=== PATIENT | female | born 1950 | race Two or more races ===

== ENCOUNTER 2024-09-12 20:05 | Inpatient (IN) | payer MEDICARE, OTHER, SELFPAY ==
[2024-09-12] VITALS (10 sets, daily range): BP systolic 130–188; BP diastolic 60–80; BMI 25.9
[2024-09-12 21:26] LABS: Hematocrit 38.4 % (37.0-47.0); Hemoglobin 13.8 g/dL (12.0-16.0); Mean Corp Hgb Conc. 35.9 g/dL (33.0-37.0); Mean Corpuscular Volume 86.3 fL (81.0-99.0); Mean Platelet Volume 11.3 fL (7.4-10.4); Platelet Count 272 10^3/uL (130-400); Red Blood Cell Count 4.45 10^6/uL (4.20-5.40); Red Cell Dist. Width 13.4 % (11.5-14.5); White Blood Cell Count 8.2 10^3/uL (4.8-10.8)
[2024-09-12 21:38] LABS: INR 0.97; PT 13.2 Sec (11.4-14.6)
[2024-09-12 21:39] LABS: APTT 36.6 Sec (23.4-35.0)
[2024-09-12 21:40] LABS: Blood Urea Nitrogen 16 mg/dl (7-17); Calcium 9.4 mg/dl (8.4-10.2); Carbon Dioxide 21 mmol/L (22-30); Chloride 112 mmol/L (98-107); Estimated Creatinine Clearance 64 ml/min; Glucose 98 mg/dl (70-99); Potassium 3.9 mmol/L (3.5-5.1); Sodium 139 mmol/L (135-145); eGFR > 60.00
[2024-09-12] MEDS: NITROGLYCERIN PREMIX 250 IV (21:40)
[2024-09-12 21:54] LABS: Troponin I 0.275 ng/ml
[2024-09-12] MEDS: HEPARIN 25000 UNITS/250 ML IV (22:09)
--- NOTE | 2024-09-12 22:30 | HPS.HSE ---
Family Physician
<MEL Valencia - Last Filed: 09/12/24 19:22>
-
Family Physician: Karina Garcia
<Chico Shay PA-C - Last Filed: 09/13/24 02:24>
-
Family Physician: Kairna Garcia
[facility]: Dr Phuc Banuelos
[facility]patient [facility]: Dr. Lund ([facility])
Chief Complaint
<MEL Valencia - Last Filed: 09/12/24 19:22>
History of Present Illness
73-year-old Kittitian-speaking female underwent outpatient stress test for substernal chest pain. Inferolateral ST depressions were noted and patient was referred to [facility] emergency room. Plavix load of 300 mg was given and patient underwent
left heart cath which reported 60% distal left main and 95% mid RCA disease. Patient was transferred to [facility] for surgical evaluation.
TTE 09/12/24 ([facility]):
LVIDd 4.26
LVIDs 2.91
Left ventricular size and function normal with EF 60-65%. Normal RV size and function. Physiologic mitral regurgitation and tricuspid regurgitation. No aortic stenosis. No pulmonic valve pathology. No pericardial effusion. Grade 1 diastolic
dysfunction.
Carotid Duplex 09/11/24 ([facility]):
>70% SUDHIR stenosis
50-69% LICA stenosis
<Chico Shay PA-C - Last Filed: 09/13/24 02:24>
-
transferred from [facility] for mv-CAD and evaluation for CABG
History of Present Illness
73-year-old Kittitian-speaking female with hx HTN, HLD, and erosive gastritis underwent outpatient stress test for substernal chest pain. Inferolateral ST depressions were noted and patient was referred to [facility] emergency room. Plavix load
of 300 mg was given on 09/11/24 and patient underwent left heart cath on 09/12, which reported 60% distal left main and 95% mid RCA disease. She is also found to have b/l carotid dz with >70% SUDHIR and 50-69% LICA. Patient was transferred to [facility] for surgical evaluation. She denies any CP currently and appears comfortable. She is accompanied by her daughter. Pt is hypertensive 170s-180s- will switch from Nitro paste to iv Nitro for better BP control.
Apparently, she has been experiencing intermittent substernal and at time parasternal burning sensation for the past 6 months, which sometimes radiated down the left arm. She attributed it to acid reflux and was seen by a Wardrobe Technician.
Endoscopy revealed erosive gastritis and she was started on PPI with some relief, but not complete. Recently, she noticed more dyspnea with exertion with pressure sensation in the chest and burning in the mid sternum, which led to getting stress
test.
Pt states that she has difficulty tolerating po meds due to gastric upset and usually gets meds via injection. She mentioned at [facility] that she absolutely cannot take ASA, even 81 mg; however, she tolerated ASA and Plavix at [facility]. Pt stated that she has
been through many medications and currently tolerates at home Losartan, Diltiazem, Omeparazole, Maalox. She also stated intolerance of all statins, having rash, burning feeling all over and difficulty breathing. The least offensive to her was
Rosuvastatin, which she no longer takes. She states similar reaction of rash, burning sensation and difficulty breathing with antibiotics, including Amoxicillin, Cehalexin, Ciprofloxacin.
TTE 09/12/24 ([facility]):
LVIDd 4.26
LVIDs 2.91
Left ventricular size and function normal with EF 60-65%. Normal RV size and function. Physiologic mitral regurgitation and tricuspid regurgitation. No aortic stenosis. No pulmonic valve pathology. No pericardial effusion. Grade 1 diastolic
dysfunction.
Carotid Duplex 09/11/24 ([facility]):
>70% SUDHIR stenosis
50-69% LICA stenosis
Medical History
<MEL Valencia - Last Filed: 09/12/24 19:22>
Allergies / Home Medications
Allergies reflects when Allergies were last updated in [employer].
Home Medications with original date entered in [employer]
Allergy/Medication List:
Allergies
Allergy/AdvReac Type Severity Reaction Status Date / Time
No Known Allergies Allergy Unverified 09/12/24 13:30
<Chico Shay PA-C - Last Filed: 09/13/24 02:24>
Past Medical History
Past Medical History: Reports GERD (Erosive esophagitis), HTN and Hypercholesterolemia
Additional Past Medical History:
Renal cyst
Past Surgical History: Reports Cholecystectomy (2010) and Tonsilectomy
Additional Past Surgical History:
Recent Endoscopy. Repair of pelvic floor prolapse- follows with a Urologist
Social History
Tobacco: Non-smoker
Alcohol: None
Drug: None
Family History
Family History: Other (Mother at 58 yo from CVA)
Allergies / Home Medications
Allergy/Medication List:
Allergies
Allergy/AdvReac Type Severity Reaction Status Date / Time
acyclovir Allergy Severe Rash Verified 09/12/24 23:02
ciprofloxacin Allergy Severe Shortness Verified 09/12/24 23:01
of Breath
Fftxofz-VHA-ZeC Reductase Allergy Severe Rash Verified 09/12/24 23:03
Inhibitor
amoxicillin Allergy Severe Shortness Uncoded 09/12/24 23:02
of Breath
Cephalexin Allergy Severe Shortness Uncoded 09/12/24 23:02
of Breath
Review of Systems
<Chico Shay PA-C - Last Filed: 09/13/24 02:24>
-
History Source: Patient, Family and Transfer Record
A 12 point ROS was completed and negative except as noted: Yes
Constitutional: Reports No Symptoms
EENT: Reports No Symptoms
Respiratory: Reports Other (TURK)
Cardiac: Reports Chest Pain
Abdomen/GI: Reports Other (GERD)
: Reports No Symptoms
Musculoskeletal: Reports No Symptoms
Skin: Reports No Symptoms
Neurological: Reports No Symptoms
Endocrine: Reports No Symptoms
Hematologic/Lymphatic: Reports No Symptoms
Psych: Reports Calm
Physical Exam
<Chico Shay PA-C - Last Filed: 09/13/24 02:24>
Physical Exam
General: Well Developed, Well Nourished, No Apparent Distress and Comfortable
HEENT: NormoCephalic, Anicteric, Moist mucous membranes, Atraumatic and PERRLA
Respiratory: Clear
Cardiac: S1/S2, Regular Rhythm (no murmur) and Carotid Bruits (b/l with R>L)
GI: Soft, Non Tender, Non Distended and Normal Bowel Sounds
Musculoskeletal: No Clubbing, No Cyanosis and No Edema
Skin: Warm and Dry
Neuro: Awake, AO x 3, No Motor Deficits and Nonfocal/grossly intact
Psych: Calm and Intact Judgment/Insight
Impression/Plan
<MEL Valencia - Last Filed: 09/12/24 19:22>
-
IMPRESSION: 73 year old female transferred to [facility] for surgical evaluation of her Left main/multivessel coronary disease
PLAN:
� Surgeon to review imaging and discuss risk-benefit with patient
� Patient will need CT of the head and neck to further define degree of carotid stenosis
� Preop diagnostics including CT chest ordered
<Chico Shay PA-C - Last Filed: 09/13/24 02:24>
-
IMPRESSION: 73 year old female transferred to [facility] for surgical evaluation of her Left main/multivessel coronary disease
-NSTEMI/mv-CAD- last Plavix dose 09/11/24
-Cath 09/12/24:
LM: distal 60% stenosis
LAD: demonstrated myocardial bridging with mild systolic compression. Prox, mid, and distal with 10% stenosis
D1: 20% ostial and 30% mid stenosis
Circ:prox and mid 10% stenosis, mid to distal 20% stenosis
OM1 and OM2 with 10% stenosis
luminal irreg
RCA: mid 99% stenosis with QUANG II flow beyond the lesion and L-to-R collaterals
PDL/RPLs with luminal irreg
-EF 60-65%, no significant valvular dz by Echo 09/12/24 at [facility]
-b/l Carotid dz with >70% SUDHIR, 50-69% LICA, and >50% L ECA stenosis
-HTN
-HLD with statin intolerance
-Erosive gastritis
-Intolerance of multiple po meds
-Renal cyst
PLAN:
� Surgeon to review imaging and discuss risk-benefit with patient
- Will need to wash out Plavix (last dose 09/11/24)
- Will continue iv Nitro, iv Heparin, ASA, BB (pt was on iv Lopressor at [facility], will try po Lopressor), Losartan (will need to stop 2 days before surgery)
� Patient will need CT of the head and neck to further define degree of carotid stenosis
� Preop diagnostics including CT chest ordered
- Will ask [facility] Cardiology to follow pt
- Cath and Echo images uploaded into [employer]
Laboratory Results
<Chico Shay PA-C - Last Filed: 09/13/24 02:24>
-
Laboratory Results
PT 13.2 Sec (11.4-14.6) 09/12/24 21:18
INR 0.97 09/12/24 21:18
APTT 36.6 Sec (23.4-35.0) H 09/12/24 21:18
Troponin I 0.275 ng/ml H* 09/12/24 21:18
[2024-09-12] MEDS: OFIRMEV 100 IV (22:32)
[2024-09-12] MEDS: PEPCID 20 MG PO (22:45)
--- NOTE | 2024-09-12 23:23 | PTCARENOTE ---
Received pt from [facility] for CABG workup. Pt is AAOx3 SB on the monitor. Heparin gtt @ 1050 units/HR and Nitro gtt initiated @5 mcg/min and titrated to maintain BP<160 mmHg. Daughter at bedside. Plan of care was explained pt
verbalized understanding. Call carlin within reach.
[2024-09-13] VITALS (16 sets, daily range): BP systolic 104–157; BP diastolic 49–77; BMI 25.7
[2024-09-13 05:22] LABS: Urine Albumin Negative (Neg - Trace); Urine Bilirubin Negative (Negative); Urine Character Clear (Clear); Urine Color Yellow; Urine Glucose Negative (Negative); Urine Ketone 1+ (Negative); Urine Leukocyte Negative (Negative); Urine Nitrite Negative (Negative); Urine Occult Blood Negative (Negative); Urine Specific Gravity 1.015 (<1.030); Urine Urobilinogen Negative (Neg - 1+)
[2024-09-13 05:40] LABS: INR 1.03; PT 13.8 Sec (11.4-14.6)
[2024-09-13 05:42] LABS: APTT 84.9 Sec (23.4-35.0)
[2024-09-13 05:45] LABS: Hematocrit 36.4 % (37.0-47.0); Hemoglobin 12.8 g/dL (12.0-16.0); Mean Corp Hgb Conc. 35.2 g/dL (33.0-37.0); Mean Corpuscular Hgb 30.8 pg (27.0-31.0); Mean Corpuscular Volume 87.7 fL (81.0-99.0); Mean Platelet Volume 10.4 fL (7.4-10.4); Platelet Count 204 10^3/uL (130-400); Red Blood Cell Count 4.15 10^6/uL (4.20-5.40); Red Cell Dist. Width 13.4 % (11.5-14.5); White Blood Cell Count 7.5 10^3/uL (4.8-10.8)
[2024-09-13 05:47] LABS: ALT (SGPT) 23 U/L (0-35); AST (SGOT) 24 U/L (14-36); Albumin 4.1 g/dl (3.5-5.0); Alkaline Phosphatase 76 U/L (38-126); Blood Urea Nitrogen 16 mg/dl (7-17); Calcium 9.3 mg/dl (8.4-10.2); Carbon Dioxide 18 mmol/L (22-30); Chloride 109 mmol/L (98-107); Estimated Creatinine Clearance 64 ml/min; Glucose 97 mg/dl (70-99); Magnesium 2.1 mg/dl (1.6-2.3); Potassium 3.7 mmol/L (3.5-5.1); Sodium 137 mmol/L (135-145); Total Bilirubin 0.8 mg/dl (0.2-1.3); Total Protein 6.3 g/dl (6.3-8.2); eGFR > 60.00
[2024-09-13] MEDS: COZAAR 50 MG PO (08:06)
[2024-09-13] MEDS: LOPRESSOR PO (08:07)
[2024-09-13] MEDS: PROTONIX 40 MG PO (08:07)
[2024-09-13] MEDS: ASPIR LOW (ENTERIC COATED) 81 MG PO (10:23)
[2024-09-13] MEDS: SENOKOT-S 1 TABLET PO (10:26)
--- NOTE | 2024-09-13 11:53 | CON.CAR ---
Addendum entered and electronically signed by To Lund MD 09/13/24 12:44:
73 yo female with newly diagnosed CA transferred for CABG evaluation. She is chest pain free. Exam with wenceslao, regular rhythm, no murmurs, no edema. TnI 0.275. EKG and tele: sinus wenceslao.
CAD/NSTEMI. Plan for CABG after Plavix washout. Tentative Wed. Continue ASA, heparin drip, nitro drip.
Original Note:
Consultation
Consultation Request
Date/Time Consultation Requested: 09/13/2024 0800
Date/Time Consultation Performed: 09/13/2024 1130
Requesting Provider: Dr. Villanueva
Performing Provider: Dr. Lund
Reason for Consultation: CP, CAD
Medical History
-
Chief Complaint: CP
History of Present Illness:
73 y/o pt of Dr. Banuelos ( Cardiology) with history of HTN, hyperlipidemia, gastritis, carotid disease on recent carotid duplex who was evaluated as OP for CP. Pt had stress test which was abnormal leading to LHC. Now transferred to for CAB
eval. Currently denies CP.
Past Medical History
Past Medical History: Other (HTN, hyperlipidemia, GERD,)
Past Surgical History: Cholecystectomy, Tonsilectomy and Other (pelvic floor prolapse)
Social History
Tobacco: Non-Smoker
Alcohol: None
Family History
Family History: Reviewed & Not Pertinent
Allergies / Home Medications
Allergy/AdvReac Type Severity Reaction Status Date / Time
acyclovir Allergy Severe Rash Verified 09/12/24 23:02
ciprofloxacin Allergy Severe Shortness Verified 09/12/24 23:01
of Breath
Hgzztol-IWQ-XxP Reductase Allergy Severe Rash Verified 09/12/24 23:03
Inhibitor
amoxicillin Allergy Severe Shortness Uncoded 09/12/24 23:02
of Breath
Cephalexin Allergy Severe Shortness Uncoded 09/12/24 23:02
of Breath
�Medication �Instructions �Recorded �Confirmed �Type
Maalox 09/13/24 History
diltiazem HCl 180 mg 180 mg PO DAILY 09/13/24 09/13/24 History
capsule,extended release 24 hr
(Cardizem CD)
losartan 50 mg tablet 50 mg PO DAILY 09/13/24 09/13/24 History
omeprazole 20 mg capsule,delayed 20 mg PO DAILY 09/13/24 09/13/24 History
release
Review of Systems
-
History Source: Patient
Constitutional: No Symptoms
Respiratory: No Symptoms
Cardiac: No Symptoms
Abdomen/GI: No Symptoms
Musculoskeletal: No Symptoms
Skin: No Symptoms
Neurological: No Symptoms
Physical Exam
Vital Signs
Temp Pulse Resp BP Pulse Ox
98.3 F 68 16 135/72 98
09/13/24 08:04 09/13/24 11:00 09/13/24 08:04 09/13/24 09:14 09/13/24 08:04
Lab Results
09/13/24 04:58
09/13/24 04:58
Troponin I 0.275 ng/ml H* 09/12/24 21:18
Physical Exam
General: Well Developed, Well Nourished and No Apparent Distress
HEENT: Normocephalic, Anicteric and Moist Mucous Membranes
Respiratory: Clear and Non Labored Respirations
Cardiac: S1/S2 and Regular Rhythm
GI: Soft, Non Tender and Normal Bowel Sounds
Musculoskeletal: No Edema
Skin: Warm, Dry and Other (R radial no hematoma, there is a palpable R radial pulse. )
Neuro: AO x 3
Impression / Plan
-
CAD/NSTEMI:
-Plan for CAB. Allowing plavix washout
-CTS following
-Echo [facility]: EF 60-65%
-elevated troponin at [facility] 09/11/24, troponin 0.275 here on 09/12/24, IV heparin,asa,nitro
-bblocker ordered but being held secondary to bradycardia
HTN:
-con't meds
hyperlipidemia:
-not previously on statin secondary to rash.
-update lipids
-consider OP PCSK9i
Carotid disease:
-asa,
-head/neck CT pending
Data Reviewed
-
Ultrasound: Report Reviewed by me (Carotid US HR 08/2024 : R ICA > 70%, L ICA 50-69% stenosis)
Medical Tests (Nuc Med, Echo etc): Report Reviewed by me (LHC 09/12/24 [facility]: 60 % distal LM,99% mRCA, D1 ostial 20%, mid 30%,LCX: calcification 10-20%,) and Other (echo 09/12/24 [facility]: EF60-65, grade I DD)
Labs: Labs Reviewed by me
Old Records: Reviewed (Summarized as above from [facility])
[2024-09-13 13:42] LABS: Glycohemoglobin (HgbA1c) 5.5 % (4.0-5.6)
[2024-09-13] MEDS: LOPRESSOR 12.5 MG PO (20:48)
[2024-09-13] MEDS: PEPCID 20 MG PO (20:49)
--- NOTE | 2024-09-13 21:48 | PTCARENOTE ---
Assumed care of the pt @ 1900. Pt is AAOx3 SR on the monitor VSS Heparin and nitro gtts infusing. Denies chest pain. call carlin within reach.
[2024-09-14] VITALS (15 sets, daily range): BP systolic 123–182; BP diastolic 53–87; BMI 25.8
[2024-09-14 03:50] LABS: Hemoglobin 12.9 g/dL (12.0-16.0); Mean Corp Hgb Conc. 34.9 g/dL (33.0-37.0); Mean Corpuscular Hgb 30.5 pg (27.0-31.0); Mean Corpuscular Volume 87.5 fL (81.0-99.0); Mean Platelet Volume 10.4 fL (7.4-10.4); Platelet Count 206 10^3/uL (130-400); Red Blood Cell Count 4.23 10^6/uL (4.20-5.40); Red Cell Dist. Width 13.4 % (11.5-14.5); White Blood Cell Count 6.6 10^3/uL (4.8-10.8)
[2024-09-14 04:01] LABS: APTT 103.7 Sec (23.4-35.0)
[2024-09-14] MEDS: TYLENOL ORAL SOLUTION 650 MG PO (04:02)
[2024-09-14 04:11] LABS: Blood Urea Nitrogen 18 mg/dl (7-17); Calcium 9.9 mg/dl (8.4-10.2); Carbon Dioxide 26 mmol/L (22-30); Chloride 108 mmol/L (98-107); Estimated Creatinine Clearance 64 ml/min; Glucose 103 mg/dl (70-99); HDL Cholesterol 49 mg/dl; LDL Cholesterol, Calculated 150 mg/dl; Potassium 3.9 mmol/L (3.5-5.1); Sodium 140 mmol/L (135-145); Total Cholesterol 219 mg/dl (50-199); Triglyceride 101 mg/dl (10-149); Very Low Density Lipoprotein 20 mg/dl (0-30); eGFR > 60.00
[2024-09-14] MEDS: REGLAN 10 MG IV (04:35)
--- NOTE | 2024-09-14 04:41 | PTCARENOTE ---
Pt c/o Headache on left side describes as a Migraine. 650 mg Tylenol liq given. Kathryn Goncalves [employer] notified and ordered 10 mg Reglan IVP. Pt states that the headache is improving.
--- NOTE | 2024-09-14 05:10 | W.PN.CT ---
Today's Communication / Plan
-
� Surgeon to review imaging and discuss risk-benefit with patient
- Will need to wash out Plavix (last dose 09/11/24)
- Will continue iv Nitro, iv Heparin, ASA, BB (pt was on iv Lopressor at [facility], will try po Lopressor), Losartan (will need to stop 2 days before surgery)
� await CT of the head and neck to further define degree of carotid stenosis
� await preop diagnostics including CT chest ordered
- appreciate ongoing cardiology input
Assessment / Plan
-
73 year old female transferred to [place] for surgical evaluation of her Left main/multivessel coronary disease
-NSTEMI/mv-CAD- last Plavix dose 09/11/24
-Cath 09/12/24:
LM: distal 60% stenosis
LAD: demonstrated myocardial bridging with mild systolic compression. Prox, mid, and distal with 10% stenosis
D1: 20% ostial and 30% mid stenosis
Circ:prox and mid 10% stenosis, mid to distal 20% stenosis
OM1 and OM2 with 10% stenosis
luminal irreg
RCA: mid 99% stenosis with QUANG II flow beyond the lesion and L-to-R collaterals
PDL/RPLs with luminal irreg
-EF 60-65%, no significant valvular dz by Echo 09/12/24 at [facility]
-b/l Carotid dz with >70% SUDHIR, 50-69% LICA, and >50% L ECA stenosis
-HTN
-HLD with statin intolerance
-Erosive gastritis
-Intolerance of multiple po meds
-Renal cyst
Subjective
-
Date of Service: September 14, 2024
Objective Data
-
Lab Results
09/14/24 03:38
09/14/24 03:38
PT 13.8 Sec (11.4-14.6) 09/13/24 04:58
INR 1.03 09/13/24 04:58
APTT 103.7 Sec (23.4-35.0) H 09/14/24 03:38
Vital Signs
Vital Signs
Temp Pulse Resp BP Pulse Ox
97.7 F 57 20 156/74 94
09/14/24 03:27 09/14/24 04:30 09/14/24 03:27 09/14/24 04:30 09/14/24 03:28
CT Intake/Output/Weight
09/13/24 09/13/24 09/14/24
06:59 18:59 06:59
Intake Total 1137.6 / 1278.6 141 / 1278.6
Balance 1137.6 / 1278.6 141 / 1278.6
SaO2: 94
Physical Exam
-
General: Awake and Oriented
Cardiovascular: Regular rate & rhythm and No Murmurs
Respiratory: Clear and Equal
Extremities: No Edema and No Erythema
Data Reviewed
-
Lab Results: Results Reviewed
Medications: Active Meds Reviewed
Chest X-Ray: Report Reviewed
ECG: Report Reviewed
[2024-09-14] MEDS: COZAAR 50 MG PO (08:22)
[2024-09-14] MEDS: PROTONIX 40 MG PO (08:22)
[2024-09-14] MEDS: ASPIR LOW (ENTERIC COATED) 81 MG PO (08:22)
[2024-09-14] MEDS: LOPRESSOR 12.5 MG PO (08:23)
--- NOTE | 2024-09-14 09:16 | W.PN.CD ---
Today's Communication / Plan
-
IV heparin, ASA
change beta kodi to coreg, as we wean nitro gtt (due to headache), for better BP control
Impression / Plan
-
CAD/NSTEMI:
-diagnosis is a threat to life
-Plan for CABG. Allowing plavix washout, tenative date is Wed
-Echo [facility]: EF 60-65%
-elevated troponin at [facility] 09/11/24, troponin 0.275 here on 09/12/24
-IV heparin, ASA
-change beta kodi to coreg, as we wean nitro gtt, for better BP control
Headache
-wean mike gtt (likely med side effect)
-if CP recurs, can try nitro paste
HTN:
-continue coreg, diltiazem
-ARB held for OR
hyperlipidemia:
-not previously on statin secondary to rash.
-update lipids
-consider OP PCSK9i
Carotid disease:
-cont ASA
Physical Exam
Vital Signs/Labs
Vital Signs
Temp Pulse Resp BP Pulse Ox
97.6 F 69 20 123/53 97
09/14/24 07:57 09/14/24 08:23 09/14/24 07:57 09/14/24 08:23 09/14/24 07:57
09/13/24 09/14/24 09/15/24
06:59 06:59 06:59
Actual Weight 67.9 kg 68.1 kg
09/14/24 03:38
09/14/24 03:38
PT 13.8 Sec (11.4-14.6) 09/13/24 04:58
INR 1.03 09/13/24 04:58
APTT 103.7 Sec (23.4-35.0) H 09/14/24 03:38
Magnesium 2.1 mg/dl (1.6-2.3) 09/13/24 04:58
Triglycerides 101 mg/dl (10-149) 09/14/24 03:38
LDL Cholesterol, Calc 150 mg/dl 09/14/24 03:38
VLDL Cholesterol, Calc 20 mg/dl (0-30) 09/14/24 03:38
HDL Cholesterol 49 mg/dl 09/14/24 03:38
LAB Results
09/12/24
21:18
Troponin I 0.275 H*
Physical Exam
Constitutional: No acute distress and Comfortable
EENT: Moist mucous membranes
Cardiovascular: Rhythm & rate is regular, Pedal edema is absent, JVD pressure is normal and Systolic murmur absent
Respiratory: Respiratory effort normal and Lungs clear to auscul.
Neuro/Psych: AO x 3
Data Reviewed
-
Date of Service: September 14, 2024
EKG: Other (Tele: SB 50s)
Labs: Labs Reviewed by me
[2024-09-14] MEDS: COREG 6.25 MG PO ×2 (10:49→20:35)
[2024-09-14] MEDS: CARDIZEM PO ×2 (14:41→22:00)
[2024-09-14] MEDS: CARDIZEM 30 MG PO (17:55)
[2024-09-14] MEDS: APRESOLINE 10 MG PO ×2 (17:55→22:57)
--- NOTE | 2024-09-14 18:03 | PTCARENOTE ---
pt continues to be sb/sr on the monitor, hr in the 50s-60s, vss. pt bp 165/87, notified dr. sweeney, hydralazine ordered and given as ordered, see MAR. Pt resting in bed comfortably. heparin gtt running per protocol, see documentation. nitro gtt d/c'd
per dr. sweeney. pt educated on plan of care and pt verbalized understanding. call carlin within reach.
[2024-09-14] MEDS: HEPARIN 25000 UNITS/250 ML IV (18:22)
[2024-09-14] MEDS: SENOKOT-S 1 TABLET PO (20:38)
[2024-09-14] MEDS: PEPCID 20 MG PO (22:57)
--- NOTE | 2024-09-14 23:58 | PTCARENOTE ---
Assumed care of the pt @ 1900. Pt AAOx3 SB on the monitor Heparin gtt infusing.2200 Cardizem dose held due to HR 54. Pt ambulates independently in the room. Pt was updated with POC, verbalized understanding.
[2024-09-15] VITALS (10 sets, daily range): BP systolic 133–164; BP diastolic 57–77; BMI 25.5
--- NOTE | 2024-09-15 05:02 | W.PN.CT ---
Today's Communication / Plan
-
- Tentative plan for OR Sunday 09/17
- Will need to wash out Plavix (last dose 09/11/24)+
- NTG held 2/2 intractable headache, changed to Coreg/hydralazine, Cardizem on hold
- Will continue iv Heparin, ASA, BB, famotidine, hydralazine
- appreciate ongoing cardiology input
Assessment / Plan
-
73 year old female transferred to [place] for surgical evaluation of her Left main/multivessel coronary disease
-NSTEMI/mv-CAD- last Plavix dose 09/11/24
-Cath 09/12/24:
LM: distal 60% stenosis
LAD: demonstrated myocardial bridging with mild systolic compression. Prox, mid, and distal with 10% stenosis
D1: 20% ostial and 30% mid stenosis
Circ:prox and mid 10% stenosis, mid to distal 20% stenosis
OM1 and OM2 with 10% stenosis
luminal irreg
RCA: mid 99% stenosis with QUANG II flow beyond the lesion and L-to-R collaterals
PDL/RPLs with luminal irreg
-EF 60-65%, no significant valvular dz by Echo 09/12/[address] [facility]
-b/l Carotid dz with >70% SUDHIR, 50-69% LICA, and >50% L ECA stenosis
-HTN
-HLD with statin intolerance
-Erosive gastritis
-Intolerance of multiple po meds
-Renal cyst
Subjective
-
Date of Service: September 15, 2024
Objective Data
-
Lab Results
09/14/24 03:38
09/14/24 03:38
PT 13.8 Sec (11.4-14.6) 09/13/24 04:58
INR 1.03 09/13/24 04:58
APTT 103.7 Sec (23.4-35.0) H 09/14/24 03:38
Vital Signs
Vital Signs
Temp Pulse Resp BP Pulse Ox
97.9 F 58 16 162/70 96
09/14/24 22:55 09/14/24 22:55 09/14/24 20:42 09/14/24 22:55 09/14/24 22:55
CT Intake/Output/Weight
09/14/24 09/14/24 09/15/24
06:59 18:59 06:59
Intake Total 141 / 1278.6
Balance 141 / 1278.6
SaO2: 96
Physical Exam
-
General: Awake and Oriented
Cardiovascular: Regular rate & rhythm
Respiratory: Clear
Extremities: No Edema
Data Reviewed
-
Lab Results: Results Reviewed
Medications: Active Meds Reviewed
Chest X-Ray: Report Reviewed
ECG: Report Reviewed
[2024-09-15] MEDS: ASPIR LOW (ENTERIC COATED) 81 MG PO (08:32)
[2024-09-15] MEDS: PROTONIX 40 MG PO (08:32)
[2024-09-15] MEDS: CARDIZEM 30 MG PO (08:32)
[2024-09-15] MEDS: COREG 6.25 MG PO ×2 (08:33→19:48)
[2024-09-15] MEDS: APRESOLINE 10 MG PO ×3 (08:33→22:31)
--- NOTE | 2024-09-15 08:37 | W.PN.CD ---
Today's Communication / Plan
-
inc. coreg to 12.5 for better BP control
cont. to monitor on heparin drip
Impression / Plan
-
CAD/NSTEMI:
-diagnosis is a threat to life
-Plan for CABG. Allowing plavix washout, tentative date is Sun
-Echo [facility]: EF 60-65%
-elevated troponin at [facility] 09/11/24, troponin 0.275 here on 09/12/24
-IV heparin, ASA
-changed beta kodi to coreg for better BP control
Headache
-improved s/p nitro drip (likely med side effect)
-if CP recurs, can try nitro paste
HTN:
-still mildly elevated
-continue coreg, diltiazem
-inc. coreg to 12.5 BID
-ARB held for OR
hyperlipidemia:
-not previously on statin secondary to rash
-updated lipid with LDL 150
-post op will start ezetimibe
-outpatient to consider PCSK9i or retrial of statin
Carotid disease:
-cont ASA
Subjective:
-brief episode of CP overnight, resolved in minutes
-no more headache
Physical Exam
Vital Signs/Labs
Vital Signs
Temp Pulse Resp BP Pulse Ox
36.8 C 55 20 152/63 97
09/15/24 07:31 09/15/24 08:33 09/15/24 07:31 09/15/24 08:33 09/15/24 07:31
09/14/24 09/15/24 09/16/24
06:59 06:59 06:59
Actual Weight 68.1 kg 67.3 kg
09/14/24 03:38
09/14/24 03:38
PT 13.8 Sec (11.4-14.6) 09/13/24 04:58
INR 1.03 09/13/24 04:58
APTT 103.0 Sec (23.4-35.0) H 09/15/24 05:08
Magnesium 2.1 mg/dl (1.6-2.3) 09/13/24 04:58
Triglycerides 101 mg/dl (10-149) 09/14/24 03:38
LDL Cholesterol, Calc 150 mg/dl 09/14/24 03:38
VLDL Cholesterol, Calc 20 mg/dl (0-30) 09/14/24 03:38
HDL Cholesterol 49 mg/dl 09/14/24 03:38
LAB Results
09/12/24
21:18
Troponin I 0.275 H*
Physical Exam
Constitutional: No acute distress
Cardiovascular: Rhythm & rate is regular
Respiratory: Respiratory effort normal
Neuro/Psych: AO x 3
Data Reviewed
-
Date of Service: September 15, 2024
Medical Decision Making: Reviewed Test Results
EKG: Tracing Personally Visualized and interpreted
X-Ray/CT/US/MRI/NUC/PET: Image Personally Visualized and interpreted
Labs: Labs Reviewed by me
--- NOTE | 2024-09-15 10:25 | CM ---
Reviewed chart. Met with Ms. Avila to review discharge plans. She states prior to admission she resides alone in a third floor walk-up apartment. She states prior to admission she was independent with ambulation and adls. She states she does
not have any DME in the home. She states she has a prescription plan. Will need to see her functional status after surgery to see if she will have any skilled care needs. Medical work-up in progress. The discharge plan is to return home when
medically stable.
[2024-09-15] MEDS: CARDIZEM PO (13:30)
--- NOTE | 2024-09-15 16:05 | PTCARENOTE ---
received patient this am in bed, sleeping but easily aroused. monitor shows NSR, VSS, IV heparin @ 1050 units/hr without difficulties. patient speaks [place] African but understands Marshallese, able to communicate. patient ambulates to with IV pole. right
radial YOLA, ecchymotic, palpable pulse.
[2024-09-15] MEDS: HEPARIN 25000 UNITS/250 ML IV (16:26)
--- NOTE | 2024-09-15 18:07 | W.PN.UPDATE ---
Update Note
Progress Note Update
Procedure Type:�Isolated CABG
Perioperative Outcome Estimate %
Operative Mortality 1.23%
Morbidity & Mortality 4.55%
Stroke 0.915%
Renal Failure 0.509%
Reoperation 1.9%
Prolonged Ventilation 2.17%
Deep Sternal Wound Infection 0.106%
Long Hospital Stay (>14 days) 2.03%
Short Hospital Stay (<6 days)* 56.3%
Clinical Summary
Planned Surgery: Isolated CABG, Urgent, First cardiovascular surgery
Demographics: 73 year old, female, 67kg, 163cm, BMI: 25.2 kg/m�
Lab Values: Creatinine: 0.7 mg/dL, Hematocrit: 37%, WBC Count: 6.6 10�/�L, Platelet Count: 394257 cells/�L
Substance Abuse: Never smoker
Risk Factors / Comorbidities: Hypertension
Coronary Artery Disease: 2 vessels diseased, Left Main Stenosis >=50%, Unstable Angina, ME: 1 to 7 Days
[2024-09-15] MEDS: MIRALAX 17 GRAMS PO (19:51)
--- NOTE | 2024-09-15 21:27 | PTCARENOTE ---
Patient received at change of shift out of bed ambulating. Presently offers no complaints. Heparin gtt infusing at 1050 units/hr. Sinus rhythm on telemetry. Right radial cath site open to air, ecchymotic but soft to palpation. Radial pulses
palpable. Oxygen saturation 99% on room air. Plan of care discussed with patient and daughter. Call carlin within reach. Care ongoing.
[2024-09-15] MEDS: PEPCID 20 MG PO (22:31)
[2024-09-16] VITALS (8 sets, daily range): BP systolic 141–173; BP diastolic 62–82; BMI 25.5
[2024-09-16 04:48] LABS: Hematocrit 37.9 % (37.0-47.0); Hemoglobin 13.1 g/dL (12.0-16.0); Mean Corp Hgb Conc. 34.6 g/dL (33.0-37.0); Mean Corpuscular Hgb 30.6 pg (27.0-31.0); Mean Corpuscular Volume 88.6 fL (81.0-99.0); Mean Platelet Volume 10.8 fL (7.4-10.4); Platelet Count 210 10^3/uL (130-400); Red Blood Cell Count 4.28 10^6/uL (4.20-5.40); Red Cell Dist. Width 13.4 % (11.5-14.5); White Blood Cell Count 7.4 10^3/uL (4.8-10.8)
[2024-09-16 04:54] LABS: APTT 98.2 Sec (23.4-35.0)
[2024-09-16 05:10] LABS: Blood Urea Nitrogen 18 mg/dl (7-17); Calcium 10.1 mg/dl (8.4-10.2); Carbon Dioxide 27 mmol/L (22-30); Chloride 107 mmol/L (98-107); Estimated Creatinine Clearance 64 ml/min; Glucose 94 mg/dl (70-99); Potassium 4.1 mmol/L (3.5-5.1); Sodium 143 mmol/L (135-145); eGFR > 60.00
--- NOTE | 2024-09-16 05:21 | W.PN.CT ---
Today's Communication / Plan
-
- Tentative plan for OR tomorrow (Sunday 09/17)
- Plavix washout (last dose 09/11/24)
- NTG held 2/2 intractable headache, changed to Coreg/hydralazine, Cardizem on hold
- Will continue iv Heparin, ASA, BB, famotidine, hydralazine
- appreciate ongoing cardiology input
Assessment / Plan
-
73 year old female transferred to [place] for surgical evaluation of her Left main/multivessel coronary disease
-NSTEMI/mv-CAD- last Plavix dose 09/11/24
-Cath 09/12/24:
LM: distal 60% stenosis
LAD: demonstrated myocardial bridging with mild systolic compression. Prox, mid, and distal with 10% stenosis
D1: 20% ostial and 30% mid stenosis
Circ:prox and mid 10% stenosis, mid to distal 20% stenosis
OM1 and OM2 with 10% stenosis
luminal irreg
RCA: mid 99% stenosis with QUANG II flow beyond the lesion and L-to-R collaterals
PDL/RPLs with luminal irreg
-EF 60-65%, no significant valvular dz by Echo 09/12/24 at [facility]
-b/l Carotid dz with >70% SUDHIR, 50-69% LICA, and >50% L ECA stenosis
-HTN
-HLD with statin intolerance
-Erosive gastritis
-Intolerance of multiple po meds
-Renal cyst
Subjective
-
Date of Service: September 16, 2024
Objective Data
-
Lab Results
09/16/24 04:02
09/16/24 04:02
PT 13.8 Sec (11.4-14.6) 09/13/24 04:58
INR 1.03 09/13/24 04:58
APTT 98.2 Sec (23.4-35.0) H 09/16/24 04:02
Vital Signs
Vital Signs
Temp Pulse Resp BP Pulse Ox
98.0 F 65 14 154/62 97
09/16/24 03:47 09/16/24 05:00 09/16/24 03:47 09/16/24 03:50 09/16/24 03:47
CT Intake/Output/Weight
09/15/24 09/15/24 09/16/24
06:59 18:59 06:59
Intake Total 126 / 126
Balance 126 / 126
SaO2: 97
Physical Exam
-
General: Awake and Oriented
Cardiovascular: Regular rate & rhythm
Respiratory: Clear and Equal
Data Reviewed
-
Lab Results: Results Reviewed
Medications: Active Meds Reviewed
Chest X-Ray: Report Reviewed
ECG: Report Reviewed
--- NOTE | 2024-09-16 08:07 | W.PN.CD ---
Today's Communication / Plan
-
no further chest pain
consider titration of coreg for better BP control
Impression / Plan
-
CAD/NSTEMI:
-diagnosis is a threat to life
-Plan for CABG. Allowing plavix washout, tentative date is Sun
-Echo HRH: EF 60-65%
-elevated troponin at [facility] 09/11/24, troponin 0.275 here on 09/12/24
-IV heparin, ASA
-changed beta kodi to coreg for better BP control, room to uptitrate
Headache
-improved s/p nitro drip (likely med side effect)
-if CP recurs, can try nitro paste
HTN:
-still mildly elevated
-continue coreg, diltiazem
-inc. coreg to 12.5 BID
-ARB held for OR
hyperlipidemia:
-not previously on statin secondary to rash
-updated lipid with LDL 150
-post op will start ezetimibe
-outpatient to consider PCSK9i or retrial of statin
Carotid disease:
-cont ASA
Subjective:
- feeling well
- tele with SR with sinus arrhythmia
Physical Exam
Vital Signs/Labs
Vital Signs
Temp Pulse Resp BP Pulse Ox
36.8 C 65 16 154/62 95
09/16/24 07:25 09/16/24 05:00 09/16/24 07:25 09/16/24 03:50 09/16/24 07:25
09/15/24 09/16/24 09/17/24
06:59 06:59 06:59
Actual Weight 67.3 kg 67.4 kg
09/16/24 04:02
09/16/24 04:02
PT 13.8 Sec (11.4-14.6) 09/13/24 04:58
INR 1.03 09/13/24 04:58
APTT 98.2 Sec (23.4-35.0) H 09/16/24 04:02
Magnesium 2.1 mg/dl (1.6-2.3) 09/13/24 04:58
Triglycerides 101 mg/dl (10-149) 09/14/24 03:38
LDL Cholesterol, Calc 150 mg/dl 09/14/24 03:38
VLDL Cholesterol, Calc 20 mg/dl (0-30) 09/14/24 03:38
HDL Cholesterol 49 mg/dl 09/14/24 03:38
Physical Exam
Constitutional: No acute distress
Cardiovascular: Rhythm & rate is regular
Respiratory: Respiratory effort normal
Neuro/Psych: AO x 3
Data Reviewed
-
Date of Service: September 16, 2024
Medical Decision Making: Reviewed Test Results
EKG: Tracing Personally Visualized and interpreted
X-Ray/CT/US/MRI/NUC/PET: Image Personally Visualized and interpreted
Labs: Labs Reviewed by me
[2024-09-16] MEDS: PROTONIX 40 MG PO (08:11)
[2024-09-16] MEDS: ASPIR LOW (ENTERIC COATED) 81 MG PO (08:11)
[2024-09-16] MEDS: COREG 6.25 MG PO ×2 (08:11→20:36)
[2024-09-16] MEDS: APRESOLINE 10 MG PO ×3 (08:11→22:00)
--- NOTE | 2024-09-16 10:10 | PTCARENOTE ---
received patient this am,monitor shows NSR, VSS. IV heparin remains at 1050units/hr. right radial ecchymotic, distal pulse palpable. reviewed plan for today, patient verbalizes understanding.
[2024-09-16] MEDS: SENOKOT-S 1 TABLET PO (12:58)
--- NOTE | 2024-09-16 13:05 | W.PN.UPDATE ---
Update Note
Progress Note Update
CARDIAC SURGERY ATTENDING:
I had a long conversation at the bedside with Mrs. Shazia Avila last evening. Our conversations were aided with the use of a English side trimmer. The patient's daughter was also present via FaceTime during this clinical interaction. We reviewed
her coronary pathology, discussed the proposed CABG procedure in great detail, reviewed the periprocedural risks (including, but not limited to, , stroke, TN, arrhythmia, PNA, POONAM/F, bleeding, and infection), discussed expected in-hospital
postprocedural course and reviewed the expected outpatient recovery. All questions were answered to the best of my abilities. The patient is agreeable to proceed. She is scheduled for operative intervention as a first case on Sunday,
09/17/2024. I anticipate KRISH to LAD, greater saphenous vein to OM, and greater saphenous vein to RPDA.
Thank you for the opportunity to participate the care of this kind patient.
Please call with any questions or concerns.
Ravinder Villanueva MD
[phone]
--- NOTE | 2024-09-16 14:59 | CM ---
Reviewed chart. Met with Mrs. Avila to review discharge plans. Used the medical staff physician line. She states prior to admission she resides alone in a third floor walk-up apartment. She states prior to admission she was independent with ambulation
and adls. She states she does not have any DME. She states she has prescription plan. She states she gets two hours of [employer] three times a week. Her daughter is the caregiver. Will need to see her functional staus after surgery to see if she will
have any skilled care needs. Medical work-up in progress. The discharge plan is to return home with her [employer] services and a home visit by the Transitional Care Nurse when medically stable.
We reviewed pre-op and post-op routines. We briefly reviewed the shower instructions. Gave her the Cardiothoracic Surgery Educational Booklet. We reviewed restrictions including sternal precautions and driving restrictions. The plan is for CABG
on Sunday, September 17.
[2024-09-16] MEDS: HEPARIN 25000 UNITS/250 ML IV (16:09)
--- NOTE | 2024-09-16 16:26 | PTCARENOTE ---
report given to Tara SHAHID CVICU, patient transferred to room 2266 with personal belongings.
--- NOTE | 2024-09-16 16:37 | PTCARENOTE ---
Received pt from IVU; pt AAOx3 and resting comfortably in chair; Sinus Pawan on monitor and VSS; Heparin drip infusing see flow sheet for details; Lungs clear; positive bowel sounds; pt voiding yellow urine; palpable pulse throughout; no edema
noted; right radial site C/D/I; see nursing for further details.
--- NOTE | 2024-09-16 21:00 | PTCARENOTE ---
Assumed care of pt from dayshift RN. Walking rounds completed. Pt AAOx3. Sinus wenceslao to sinus rhythm on the tele monitor. HR 50-70s. BP slightly elevated. Palpable pulses throughout. No edema. Pt 98% on RA. Lung sounds clear B/L. Deep breathing and
IS encouraged. Abdomen soft/nontender. +BS. Pt voiding w/o issue. Right cath site intact and CREDIT AUTHORIZER. PIV x2 intact. Heparin infusing as ordered. Pt OOB ad bismark. No c/o pain at this time. Updated w/ plan for the night and CVOR prep. Call carlin within
reach.
[2024-09-16] MEDS: PEPCID 20 MG PO (22:00)
--- NOTE | 2024-09-16 22:00 | PTCARENOTE ---
Pt clipped for CVOR and given first CHG bed bath. Gown and linens changed. Pt educated about CHG baths and that there will be a second in the morning.
[2024-09-17] VITALS (12 sets, daily range): BP systolic 69–152; BP diastolic 19–72; BMI 25.2
--- NOTE | 2024-09-17 00:22 | PTCARENOTE ---
No change in assessment. Pt Sinus wenceslao on the tele monitor. HR 40-50s. BP stable - remains slightly elevated. 153/77. MAP 100. Pt 95% on RA. Heparin infusion maintained. Denies pain at this time. Call carlin within reach.
--- NOTE | 2024-09-17 05:10 | PTCARENOTE ---
Pt given second CHG bed bath and wiped w/ CHG wipes. Gown and linens changed. Weight and VS obtained. VSS. PTT drawn and sent. Remains sinus to sinus wenceslao on the tele monitor. HR 50s-70s. Pt is 97% on RA. Heparin infusing as ordered. Pt updated w/
plan for the AM. Call carlin within reach.
[2024-09-17 05:48] LABS: APTT 75.6 Sec (23.4-35.0)
--- NOTE | 2024-09-17 05:58 | W.PN.CT ---
Today's Communication / Plan
-
- planning for OR today (Sunday 09/17)
- preop UA pending
- Plavix washout (last dose 09/11/24)
- NTG held 2/2 intractable headache, changed to Coreg/hydralazine, Cardizem on hold
- Will continue iv Heparin, ASA, BB, famotidine, hydralazine
- appreciate ongoing cardiology input
Assessment / Plan
-
73 year old female transferred to [place] for surgical evaluation of her Left main/multivessel coronary disease
-NSTEMI/mv-CAD- last Plavix dose 09/11/24
-Cath 09/12/24:
LM: distal 60% stenosis
LAD: demonstrated myocardial bridging with mild systolic compression. Prox, mid, and distal with 10% stenosis
D1: 20% ostial and 30% mid stenosis
Circ:prox and mid 10% stenosis, mid to distal 20% stenosis
OM1 and OM2 with 10% stenosis
luminal irreg
RCA: mid 99% stenosis with QUANG II flow beyond the lesion and L-to-R collaterals
PDL/RPLs with luminal irreg
-EF 60-65%, no significant valvular dz by Echo 09/12/24 at [facility]
-b/l Carotid dz with >70% SUDHIR, 50-69% LICA, and >50% L ECA stenosis
-HTN
-HLD with statin intolerance
-Erosive gastritis
-Intolerance of multiple po meds
-Renal cyst
Discussed patient care with: Care Team
Subjective
-
Date of Service: September 17, 2024
Objective Data
-
Lab Results
09/16/24 04:02
09/16/24 04:02
PT 13.8 Sec (11.4-14.6) 09/13/24 04:58
INR 1.03 09/13/24 04:58
APTT 98.2 Sec (23.4-35.0) H 09/16/24 04:02
Vital Signs
Vital Signs
Temp Pulse Resp BP Pulse Ox
97.5 F 66 16 173/67 98
09/16/24 20:34 09/16/24 20:36 09/16/24 20:34 09/16/24 20:36 09/16/24 20:34
CT Intake/Output/Weight
09/16/24 09/16/24 09/17/24
06:59 18:59 06:59
Intake Total 1086 / 1212 10.5 / 10.5
Balance 1086 / 1212 10.5 / 10.5
SaO2: 98
Physical Exam
-
General: Awake, Oriented and AOx3
Cardiovascular: Regular rate & rhythm
Respiratory: Clear and Equal
Incision: Clean, Dry and Intact
Extremities: No Edema
Data Reviewed
-
Lab Results: Results Reviewed
Medications: Active Meds Reviewed
Chest X-Ray: Image Reviewed
[2024-09-17] MEDS: BACTROBAN 2% OINTMENT 1 APPLIC NASAL ×2 (06:13→20:10)
[2024-09-17] MEDS: LOPRESSOR 12.5 MG PO (06:13)
[2024-09-17] MEDS: PROTONIX 40 MG PO (06:13)
[2024-09-17] MEDS: MAGNESIUM OXIDE 500 MG PO (06:13)
[2024-09-17 07:07] LABS: ACT+ - POC 96 Seconds (82-134)
[2024-09-17 07:17] LABS: Urine Albumin Negative (Neg - Trace); Urine Bilirubin Negative (Negative); Urine Character Clear (Clear); Urine Color Yellow; Urine Glucose Negative (Negative); Urine Ketone Negative (Negative); Urine Leukocyte Negative (Negative); Urine Nitrite Negative (Negative); Urine Occult Blood Negative (Negative); Urine Urobilinogen Negative (Neg - 1+)
[2024-09-17 09:01] LABS: ACT+ - POC 606 Seconds (82-134)
[2024-09-17] MEDS: APRESOLINE PO (09:27)
[2024-09-17] MEDS: ASPIR LOW (ENTERIC COATED) PO (09:28)
[2024-09-17] MEDS: BACTROBAN 2% OINTMENT NASAL (09:29)
[2024-09-17] MEDS: COREG PO (09:29)
[2024-09-17] MEDS: PROTONIX PO (09:29)
[2024-09-17 09:43] LABS: ACT+ - POC 498 Seconds (82-134)
[2024-09-17 10:04] LABS: ACT+ - POC 554 Seconds (82-134)
[2024-09-17 10:41] LABS: ACT+ - POC 499 Seconds (82-134)
[2024-09-17] MEDS: AZACTAM 2000 MG IV ×2 (10:59)
[2024-09-17 11:01] LABS: ACT+ - POC 517 Seconds (82-134)
[2024-09-17 11:29] LABS: ACT+ - POC 93 Seconds (82-134)
[2024-09-17 11:30] LABS: B.E. - POC 3.4 mmol/L; Glucose - POC 144 mg/dl (70-99); HCO3 - POC 28 mmol/L (21-28); Hematocrit - POC 27 % PCV (37-47); Hemodilution- POC Yes; Hemoglobin Calculated - POC 9.2; Ionized Calcium - POC 1.26 mmol/L (1.15-1.33); Lactate - POC 0.63 mmol/L (0.36-0.75); PCO2 - POC 43 mmHg (35-48); PO2 - POC 480 mmHg (83-108); POC Comment POST; Potassium - POC 4.6 mmol/L (3.5-5.1); Sodium - POC 141 mmol/L (136-145); Specimen Type - POC Arterial; pH - POC 7.43 (7.35-7.45)
--- NOTE | 2024-09-17 11:53 | W.CVOR.SURPR ---
CVOR Surgeon Immed Pre Op
-
I have examined this patient prior to performance of the scheduled procedure.
The patient's condition is unchanged from the time of the dictated/written History and
Physical and the patient is able to undergo the scheduled procedure.
--- NOTE | 2024-09-17 11:53 | W.IMMPOSTOP ---
Addendum entered and electronically signed by Ravinder Villanueva MD 09/17/24 12:20:
[id number]
Original Note:
Surgical Immed Post Op Note
-
CARDIAC SURGERY OPERATIVE NOTE:
Preoperative Dx:
NSTEMI
Multivessel CAD including LM disease
Postoperative Dx:
Same
Procedures:
1) Median sternotomy
2) Takedown of KRISH (narrow pedicle)
3) Endoscopic harvest/prep of RLE GSV
4) CABG x 3 (KRISH to LAD, GSV to OM1, GSV to RPDA)
5) ELAA w/ 40mm AtriClip
Surgeon:
Ravinder Villanueva M.D.
Assistants:
Lina Guzman.A.-CRobyn; assistant surveyor throughout; endoscopic harvest/prep of RLE GSV
Adria MontesA.-CRobyn; hqierd-pbnmiat-jumg sternotomy closure
Anesthesia:
Wilbert Saha M.D. and Chung Flood CRobynR.N.A.
Perfusion:
Ngozi ClintonCRobynP.; XC: 66min, CPB: 100min
Findings:
KRISH was a healthy appearing conduit w/ very brisk blood flow; ELD 2.5mm
GSV was a healthy appearing conduit w/ ELD ranging from 2.5-3.5mm
LAD was visible on the epicardial surface, no significant calcifications, ELD at distal midpoint anatomosis 2.5mm
OM1 was the largest OM branches, it was under a very shallow intramyocardial course (<1mm), no significant calcifications, ELD 2.5mm
Distal RCA/proximal PDA was slightly small w/ ELD 1.35mm w/ minor scattered calcifications; anastomosis performed over 1.0mm coronary shunt
GRAEME was large an had extended windsock morphology w/ a small chicken-wing component - excluded at base w/ good result
Excellent flow in all grafts on intraoperative transit-time U/S flow probe assessment
Post-ARACELY: normal biventricular function w/ LVEF 60-65%, no RWMA, no significant VHD, GRAEME confirmed excluded
Transfusions:
None
Complications:
None
Implants:
Epicardial V-wire x 1 (preop/postop bradycardia)
Grounding wire x 1
CT x 4 (B/L pleural, superior mediastinal x 2)
8 Sternal wires
1 Sternal 'X' plate w/ 8 - 12mm screws
AtriCure 40mm AtriClip - LOT [id number]
Condition:
75 sinus (0.9/0.4), 111/64, CVP 19, 100%
GTTS: levophed 1, precedex 0.5, insulin 1
Stable/guarded to CVICU
--- NOTE | 2024-09-17 11:56 | CON.INTV ---
Consultation
Consultation Request
Date/Time Consultation Requested: 09/17/20241116
Date/Time Consultation Performed: 09/17/2024 - 1136
Requesting Provider: Cherelle Duncan PA-C
Performing Provider: Dr. Cunha
Reason for Consultation: s/p CABG x3
Medical History
-
Chief Complaint: Chest pain
History of Present Illness:
73-year-old female with a past medical history of hypertension, hyperlipidemia and erosive gastritis who presented from outside hospital ([facility]) for evaluation of CABG. Patient initially had an outpatient stress test for substernal chest pain and
inferolateral ST depressions were seen and she was referred to [facility]. She was diagnosed with an NSTEMI (elevated troponin at [facility]), was Plavix loaded and underwent left heart catheterization which showed 60% distal left main disease, 95%
mid RCA disease. Patient then transferred to [facility] for further evaluation for CABG. Plan was for CABG after Plavix washout, and she was continued on ASA, nitro drip and heparin drip in the interim period. Patient went to the OR
today and underwent CABG x 3 with a left atrial appendage clip with a 40 mm AtriClip. There were no complications and she was transferred to the CVICU postoperatively for further care with [employer] services consulted for additional
management/recommendations.
When I saw the patient, she was intubated on SIMV at 14/500/40%/5 with PSV: 5. PIP was 25 cmH2O, VTe 519 mL and breathing at 14 breaths/min. Heart rate 65, BP via left radial A-line: 120/66, and saturating 98%. Currently sedated on Precedex at
0.5 mcg/kg/hr, and on insulin drip at 2.3 units/hr.
PMHx: Hypertension, hyperlipidemia, erosive gastritis, renal cyst
PSHx: Cholecystectomy, tonsillectomy, endoscopy, repair of pelvic floor prolapse
Past Medical History
Past Medical History: Other (Above as per HPI)
Past Surgical History: Other (Above as per HPI)
Social History
Tobacco: Non-smoker
Alcohol: None
Drug: None
Family History
Family History: Other (Mother: CVA)
Allergies / Home Medications
Allergies
Allergy/AdvReac Type Severity Reaction Status Date / Time
acyclovir Allergy Severe Rash Verified 09/12/24 23:02
ciprofloxacin Allergy Severe Shortness Verified 09/12/24 23:01
of Breath
Idanqnm-ESU-UvA Reductase Allergy Severe Rash Verified 09/12/24 23:03
Inhibitor
amoxicillin Allergy Shortness Verified 09/16/24 08:19
of Breath
cephalexin Allergy Shortness Verified 09/16/24 08:19
of Breath
Home Medications
�Medication �Instructions �Recorded �Confirmed �Last Taken �Type
Maalox 09/13/24 Unknown History
diltiazem HCl 180 mg 180 mg PO DAILY Heart 09/13/24 09/13/24 Unknown History
capsule,extended release 24 hr Disease/Condition
(Cardizem CD)
losartan 50 mg tablet 50 mg PO DAILY Blood Pressure 09/13/24 09/13/24 Unknown History
omeprazole 20 mg capsule,delayed 20 mg PO DAILY Gastrointestinal 09/13/24 09/13/24 Unknown History
release Issue
Review of Systems
-
Unable to Obtain full review of systems at this time due to: Patient Intubation
Vitals / Labs / Diagnostic Testing
Vital Signs
Temp Pulse Resp BP Pulse Ox
97.7 F 54 16 152/72 97
09/17/24 04:54 09/17/24 06:00 09/17/24 04:54 09/17/24 04:54 09/17/24 04:54
Laboratory Results
09/17/24
05:08
APTT 75.6 H
Diagnostic Testing:
Physical Exam
-
HEENT: Normocephalic and Anicteric
Cardiovascular: S1/S2 and Peripheral Edema (negative)
Respiratory: Wheeze (negative), Rales (negative), Rhonchi (negative) and Non-Labored Respirations
GI: Soft, Non Distended, Non Tender and Normal Bowel Sounds
Neurology: Tremors (negative) and Other (Sedated)
Skin: Warm and Dry
General: Respiratory Distress (negative), Comfortable, Fever (negative) and Chills (negative)
Assessment
-
Assessment: 73-year-old female with a past medical history of hypertension, hyperlipidemia and erosive gastritis who presented from outside hospital ([facility]) for evaluation of CABG. Patient initially had an outpatient stress test for substernal chest
pain and inferolateral ST depressions were seen and she was referred to [facility]. She was diagnosed with an NSTEMI (elevated troponin at [facility]), was Plavix loaded and underwent left heart catheterization which showed 60% distal left main
disease, 95% mid RCA disease. Patient then transferred to [facility] for further evaluation for CABG. Plan was for CABG after Plavix washout, and she was continued on ASA, nitro drip and heparin drip in the interim period. Patient went
to the OR today and underwent CABG x 3 with a left atrial appendage clip with a 40 mm AtriClip. There were no complications and she was transferred to the CVICU postoperatively for further care with [employer] services consulted for additional
management/recommendations.
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
Impression:
#MV-CAD including left main disease + NSTEMI s/p CABG x 3 with left atrial appendage exclusion with 40 mm AtriClip (POD #0)
#Acute anemia due to above
#Acute thrombocytopenia due to above
#Hyperglycemia (HbA1C: 5.5 on 09/13/2024)
#Hyperkalemia (mild)
#Lactic acidosis
#History of hypertension
#History of hyperlipidemia
#History of erosive gastritis
Plan:
Ventilator settings reviewed
FiO2 will be weaned to maintain SpO2 >90-94%
Minute ventilation will be adjusted
Arterial blood gases will be monitored
Spontaneous breathing trial will be attempted with hopeful extubation after anesthesia/sedation wear off
prn nebulized bronchodilators - not currently bronchospastic
Pulmonary artery catheter parameters will be followed
Pressors/antihypertensive/inotropes/diuretics will be provided as needed
Maintain MAP>65
Replete electrolytes with K>4 but keep <5.2; replete Mg>2
Trend lactate until <2 mmol/L
Monitor chest tube output (bilateral pleural chest tubes + mediastinal chest tubes x 2)
Monitor hemoglobin
Monitor platelet count and coags
Transfuse blood products as needed to maintain Hb>7g/dL, plt>50k (given post-operative status)
CT surgery managing chest tubes
Monitor blood sugar to maintain euglycemia with goal BG 110-140
Insulin drip per protocol
Aspiration precautions
VAP prevention protocol
DVT prophylaxis
Early nutrition
Early mobilization
Critical care statement: A total of 41 minutes of critical care time was provided for this patient today. This includes management of ventilator, spontaneous breathing trial, arterial blood gases, pressors, of unstable vital signs, evaluation of the
patient at bedside, reviewing the patient's pertinent medical records including radiographs, microbiology, laboratory evaluations, and discussion with primary team and critical care nursing.
[2024-09-17] MEDS: NSS 500 IV (12:30)
--- NOTE | 2024-09-17 12:30 | PTCARENOTE ---
Pt arrived from CVOR to CVICU at 1215. Pt intubated and sedated. Pt SR with HR 63, BP 119/61 MAP 82, CVP 15. Temp 96.5, Hima hugger in place. Epicardial V wire in place, box off. Radial pulses palpable, pedal pulses weakly palpable. Pt with #[address] at 22cm at right lip. Vent set to SIMV 40% FiO2, RR 14, TV 500, PEEP 5, pressure support 5. Pulse oximetry 98%. Oral care completed. Mediastinal chest tubes x2 and left/right pleural chest tubes in place to -20 suction, no sign of air
leak or crepitus, drainage red in color. Bowel sounds hypoactive. Vogel catheter in place draining yellow urine, Vogel care completed. Midsternal incision with post-op dressing in place. Right groin puncture YOLA with surgical adhesive. Right leg
incision with Lei wrap overlay in place. Left radial Daphnie intact. Right IJ cordis with SLIC intact. Pt remains on Levo at 1mcg/min, Precedex 0.5mcg/kg/hr, and insulin per glycemic protocol
[2024-09-17 12:32] LABS: Glucose - Point of Care 112 mg/dl (70-99)
[2024-09-17 12:38] LABS: B.E. 0.6 mmol/L; HCO3 24.2 mmol/L (21-28); O2 Saturation % 99.8 % (94-98); PCO2 34 mmHg (32-35); PO2 112 mmHg (83-108); Potassium 3.6 mMOL/L (3.5-5.1); Sodium 138 mMOL/L (136-145); pH 7.46 (7.35-7.45)
[2024-09-17 12:41] LABS: Mixed Venous O2 Saturation 65.7 %
[2024-09-17 12:53] LABS: Blood Urea Nitrogen 17 mg/dl (7-17); Estimated Creatinine Clearance 64 ml/min; Glucose 111 mg/dl (70-99); Magnesium 3.1 mg/dl (1.6-2.3)
[2024-09-17 13:07] LABS: Glucose - Point of Care 125 mg/dl (70-99)
[2024-09-17 13:07] LABS: Hemoglobin 10.1 g/dL (12.0-16.0); INR 1.33; Platelet Count 62 10^3/uL (130-400)
[2024-09-17 13:08] LABS: APTT 29.8 Sec (23.4-35.0)
[2024-09-17] MEDS: KCL 50 IV ×2 (13:09→14:05)
[2024-09-17] MEDS: TYLENOL PO ×2 (13:12→22:32)
[2024-09-17] MEDS: NEURONTIN PO ×3 (13:12→22:32)
[2024-09-17 14:06] LABS: Glucose - Point of Care 108 mg/dl (70-99)
--- NOTE | 2024-09-17 14:11 | CM ---
Patient in OR today w/ CT Surgery.
Reviewed initial assessment. Pt. resides alone in a 1 story dwelling, located on the 3rd floor of a walk-up apartment building.
Patient is indep. at baseline w/ ADLs, mobility without the use of any assisted device. Pt. has assist of her dtr., who is her health aide 2h 3x/week thru [employer], .
At this time, antic. home w/ CT Transitional Care RN/ if available in her geographical area.
Will follow.
[2024-09-17] MEDS: DEMEROL 12.5 MG IV (14:31)
[2024-09-17 15:13] LABS: Glucose - Point of Care 80 mg/dl (70-99)
[2024-09-17] MEDS: OFIRMEV 100 IV ×2 (15:22→22:31)
[2024-09-17 15:25] LABS: B.E. - POC 7.5 mmol/L; Glucose - POC 106 mg/dl (70-99); HCO3 - POC 37 mmol/L (21-28); Hematocrit - POC 24 % PCV (37-47); Hemodilution- POC Yes; Hemoglobin Calculated - POC 8.2; Ionized Calcium - POC 1.08 mmol/L (1.15-1.33); Lactate - POC < 0.30 mmol/L (0.36-0.75); O2 Saturation %Calculated-POC 99.9 % (94-98); PCO2 - POC 89 mmHg (35-48); PO2 - POC 396 mmHg (83-108); POC Comment CPB; Potassium - POC 4.5 mmol/L (3.5-5.1); Sodium - POC 140 mmol/L (136-145); Specimen Type - POC Arterial; pH - POC 7.22 (7.35-7.45)
[2024-09-17 15:25] LABS: B.E. - POC 7.3 mmol/L; Glucose - POC 102 mg/dl (70-99); HCO3 - POC 34 mmol/L (21-28); Hematocrit - POC 24 % PCV (37-47); Hemodilution- POC Yes; Hemoglobin Calculated - POC 8.2; Ionized Calcium - POC 1.02 mmol/L (1.15-1.33); Lactate - POC < 0.30 mmol/L (0.36-0.75); PCO2 - POC 62 mmHg (35-48); PO2 - POC 448 mmHg (83-108); POC Comment CPB; Potassium - POC 5.1 mmol/L (3.5-5.1); Sodium - POC 139 mmol/L (136-145); Specimen Type - POC Arterial; pH - POC 7.35 (7.35-7.45)
[2024-09-17 15:25] LABS: B.E. - POC 5.3 mmol/L; Glucose - POC 103 mg/dl (70-99); HCO3 - POC 29 mmol/L (21-28); Hematocrit - POC 38 % PCV (37-47); Hemodilution- POC No; Hemoglobin Calculated - POC 12.9; Ionized Calcium - POC 1.14 mmol/L (1.15-1.33); Lactate - POC < 0.30 mmol/L (0.36-0.75); PCO2 - POC 37 mmHg (35-48); PO2 - POC 410 mmHg (83-108); POC Comment PRE; Potassium - POC 3.7 mmol/L (3.5-5.1); Sodium - POC 144 mmol/L (136-145); Specimen Type - POC Arterial
[2024-09-17 15:25] LABS: B.E. - POC 2.1 mmol/L; Glucose - POC 150 mg/dl (70-99); HCO3 - POC 30 mmol/L (21-28); Hematocrit - POC 28 % PCV (37-47); Hemodilution- POC Yes; Hemoglobin Calculated - POC 9.6; Ionized Calcium - POC 1.07 mmol/L (1.15-1.33); Lactate - POC < 0.30 mmol/L (0.36-0.75); PCO2 - POC 65 mmHg (35-48); PO2 - POC 425 mmHg (83-108); POC Comment WARM; Sodium - POC 141 mmol/L (136-145); Specimen Type - POC Arterial; pH - POC 7.27 (7.35-7.45)
[2024-09-17 15:25] LABS: B.E. - POC 2.8 mmol/L; Glucose - POC 106 mg/dl (70-99); HCO3 - POC 28 mmol/L (21-28); Hematocrit - POC 26 % PCV (37-47); Hemodilution- POC Yes; Hemoglobin Calculated - POC 8.7; Ionized Calcium - POC 1.01 mmol/L (1.15-1.33); Lactate - POC < 0.30 mmol/L (0.36-0.75); O2 Saturation %Calculated-POC 99.9 % (94-98); PCO2 - POC 48 mmHg (35-48); PO2 - POC 363 mmHg (83-108); POC Comment CPB; Potassium - POC 4.6 mmol/L (3.5-5.1); Sodium - POC 140 mmol/L (136-145); Specimen Type - POC Arterial; pH - POC 7.38 (7.35-7.45)
[2024-09-17] MEDS: CALCIUM CHLORIDE 10% SYRINGE 500 MG IV ×2 (15:33→15:45)
[2024-09-17] MEDS: PACERONE PO (15:34)
[2024-09-17] MEDS: LR 250 ML IV ×3 (15:40→22:06)
[2024-09-17] MEDS: SODIUM BICARBONATE 50 MEQ IV (15:40)
[2024-09-17 16:13] LABS: Glucose - Point of Care 78 mg/dl (70-99)
--- NOTE | 2024-09-17 16:30 | PTCARENOTE ---
CPAP trial initiated. Pt appeared to have dusky lips. SBP 60's. CT SHAMIR, Paty, at bedside. Legs elevated. Calcium chloride push administered. LR bolus initiated. Placed back on SIMV. BP stabilized. SBP 60's again and HR 40's. Legs elevated. Second
calcium push administered. Pt received total 500LR bolus. 1 amp Bicarb administered. Levo gtt titrated. BP stabilized. Dr. Betancourt to bedside. Repeat EKG done, pt in junctional rhythm. V wire not working, polarized leads changed and Epicardial V wire
placed to backup of /. ABG collected. ECHO done at bedside. No dumping noted from chest tubes. Pt stabilized and now resting.
[2024-09-17] MEDS: ASPIRIN 300 MG RECTAL (16:39)
[2024-09-17 16:59] LABS: B.E. - POC -1.4 mmol/L; Blood Urea Nitrogen - POC 18 mg/dl (3-120); Chloride - POC 109 mmol/L (96-111); Creatinine - POC 0.95 mg/dl (0.3-1.0); Glucose - POC 143 mg/dl (70-99); HCO3 - POC 24 mmol/L (21-28); Hematocrit - POC 28 % PCV (37-47); Hemodilution- POC Yes; Hemoglobin Calculated - POC 9.6; Ionized Calcium - POC 1.92 mmol/L (1.15-1.33); Lactate - POC 5.06 mmol/L (0.36-0.75); O2 Saturation %Calculated-POC 96.6 % (94-98); PCO2 - POC 43 mmHg (35-48); PO2 - POC 91 mmHg (83-108); Potassium - POC 5.3 mmol/L (3.5-5.1); Sodium - POC 142 mmol/L (136-145); Specimen Type - POC Arterial; pH - POC 7.36 (7.35-7.45)
[2024-09-17 17:05] LABS: Glucose - Point of Care 91 mg/dl (70-99)
[2024-09-17 17:41] LABS: B.E. 0.3 mmol/L; HCO3 25.4 mmol/L (21-28); PCO2 42 mmHg (32-35); PO2 157 mmHg (83-108); pH 7.39 (7.35-7.45)
[2024-09-17 17:46] LABS: Hemoglobin 10.5 g/dL (12.0-16.0)
[2024-09-17 17:47] LABS: Hematocrit 31.1 % (37.0-47.0); Platelet Count 90 10^3/uL (130-400)
[2024-09-17] MEDS: DILAUDID 0.5 MG IV (18:02)
[2024-09-17 18:07] LABS: Glucose - Point of Care 97 mg/dl (70-99)
--- NOTE | 2024-09-17 18:29 | PTCARENOTE ---
CPAP trial initiated, tolerated well. ABG collected. Pt extubated to 6L nasal cannula at 1735. Pulse oximetry 100%. Pt able to state name following extubation. PRN Dilaudid administered for back pain. Pt repositioned for comfort. Daughter at
bedside.
[2024-09-17 19:05] LABS: Glucose - Point of Care 120 mg/dl (70-99)
[2024-09-17] MEDS: TORADOL 15 MG IV (19:27)
--- NOTE | 2024-09-17 19:57 | PTCARENOTE ---
Received pt from [facility]. pt is s/p CABGx3 and GRAEME clip. daughter is at bedside. pt is AAOx3 but drowsy, state pain is 5/10, see MAR. heart sounds distant, radial and DP pulses palpable but weak, no edema, temp epicardial V-wire set to VVI
40/10/2. lungs diminished throughout, spo2 100% on 6LNC, x2 pleural and x2 MS CT to -20 wall suction, no air leaks, no tidaling, to crepitus. hypoactive BSx4 quadrants, abdomen soft non tender. surgical sites maintained. right IJ cordis/slick, right
rad A-line, and PIVs all maintained, zeroed, and leveled. insulin and Levophed gtt infusing. call carlin within reach will continue to monitor.
[2024-09-17 20:10] LABS: Glucose - Point of Care 126 mg/dl (70-99)
[2024-09-17] MEDS: SENOKOT-S PO (20:10)
[2024-09-17 21:58] LABS: Glucose - Point of Care 97 mg/dl (70-99)
[2024-09-17] MEDS: PACERONE 200 MG PO (22:00)
--- NOTE | 2024-09-17 22:20 | PTCARENOTE ---
due to pt hx of Erosive esophagitis, pt states that she can not tolerate PO medication well. CVPA discusses this with pt and pt agrees to take cardiac PO medication. CVPA also orders 250ml of LR.
[2024-09-17] MEDS: VANCOCIN 200 IV (23:02)
[2024-09-18] VITALS (23 sets, daily range): BP systolic 84–135; BP diastolic 47–78; PULSE 84; O2SAT 95–98; BMI 26.8
--- NOTE | 2024-09-18 | PTCARENOTE ---
pt assessment unchanged. NSR on monitor, VSS. pt repositioned, pain management on going, see MAR and worklist. call carlin within reach.
[2024-09-18] MEDS: DILAUDID 0.5 MG IV (00:04)
[2024-09-18 00:06] LABS: Glucose - Point of Care 121 mg/dl (70-99)
[2024-09-18 02:01] LABS: Glucose - Point of Care 116 mg/dl (70-99)
[2024-09-18] MEDS: ROXICODONE 5 MG PO ×4 (02:11→21:28)
[2024-09-18 02:15] LABS: Hematocrit 28.6 % (37.0-47.0); Hemoglobin 9.9 g/dL (12.0-16.0); Mean Corp Hgb Conc. 34.6 g/dL (33.0-37.0); Mean Corpuscular Hgb 30.9 pg (27.0-31.0); Mean Corpuscular Volume 89.4 fL (81.0-99.0); Mean Platelet Volume 10.7 fL (7.4-10.4); Platelet Count 140 10^3/uL (130-400); Red Cell Dist. Width 13.6 % (11.5-14.5); White Blood Cell Count 16.9 10^3/uL (4.8-10.8)
--- NOTE | 2024-09-18 02:18 | ECGCV ---
Chico Shay notified of ECG critical value identified by electronic interpretation on ECG completed on 09/18/2024, at 0218.
[2024-09-18 02:26] LABS: Blood Urea Nitrogen 22 mg/dl (7-17); Calcium 9.1 mg/dl (8.4-10.2); Carbon Dioxide 27 mmol/L (22-30); Chloride 111 mmol/L (98-107); Estimated Creatinine Clearance 56 ml/min; Glucose 120 mg/dl (70-99); Magnesium 2.2 mg/dl (1.6-2.3); Potassium 4.5 mmol/L (3.5-5.1); Sodium 142 mmol/L (135-145); eGFR > 60.00
[2024-09-18] MEDS: DILAUDID 0.25 MG IV (03:08)
--- NOTE | 2024-09-18 03:24 | W.PN.CT ---
Today's Communication / Plan
-
-pod #1
-no significant issues overnight. C/o pain in the back mostly, worse with inspiration, likely from CTs
-drips: Levo 1, Insulin
-CT outputs: 2 pleur 130/220, 2 meds 60/180 in 12/24 hrs
-wean off Levo, then deline
-current meds (ASA, Plavix, Amio, Protonix). Held Lopressor while on Levo. Intolerant of statins
-continue Protonix, started Carafate for recent erosive gastritis
-encourage IS, OOB
Assessment / Plan
-
-s/p CABG x 3 (KRISH to LAD, GSV to OM1, GSV to RPDA); ELAA w/ 40mm AtriClip by Dr. Villanueav on 09/17/24, pod #1
-Post-ARACELY: normal biventricular function w/ LVEF 60-65%, no RWMA, no significant VHD, GRAEME confirmed excluded
-NSTEMI/mv-CAD- last Plavix dose 09/11/24
-Cath 09/12/24:
LM: distal 60% stenosis
LAD: demonstrated myocardial bridging with mild systolic compression. Prox, mid, and distal with 10% stenosis
D1: 20% ostial and 30% mid stenosis
Circ:prox and mid 10% stenosis, mid to distal 20% stenosis
OM1 and OM2 with 10% stenosis
luminal irreg
RCA: mid 99% stenosis with QUANG II flow beyond the lesion and L-to-R collaterals
PDL/RPLs with luminal irreg
-EF 60-65%, no significant valvular dz by Echo 09/12/24 at [facility]
-b/l Carotid dz with >70% SUDHIR, 50-69% LICA, and >50% L ECA stenosis
-HTN
-HLD with statin intolerance
-Erosive gastritis
-Intolerance of multiple po meds
-Renal cyst
-Suspect b/l PAD (DP pulses by Doppler b/l)
-Acute postop blood loss anemia - stable, no transfusion
-Acute postop thrombocytopenia - improved
-Acute postop atelectasis
-Acute postop hypovolemia with subsequent hypervolemia
-Suspected pericarditis on postop ECG/ +rub
Discussed patient care with: Nursing and Care Team
Subjective
-
Date of Service: September 18, 2024
Objective Data
-
PT 17.0 Sec (11.4-14.6) H 09/17/24 12:28
INR 1.33 09/17/24 12:28
APTT 29.8 Sec (23.4-35.0) 09/17/24 12:28
Vital Signs
Vital Signs
Temp Pulse Resp BP Pulse Ox
100.0 F 80 17 89/54 99
09/18/24 01:00 09/18/24 01:00 09/18/24 01:00 09/18/24 01:00 09/18/24 01:00
CT Intake/Output/Weight
09/17/24 09/17/24 09/18/24
06:59 18:59 06:59
Intake Total 115.5 / 115.5 921.8 / 1348.9 427.1 / 1348.9
Output Total 885 / 1445 560 / 1445
Balance 115.5 / 115.5 36.8 / -96.1 -132.9 / -96.1
SaO2: 99
Physical Exam
-
General: Awake and AOx3
Cardiovascular: Regular rate & rhythm, No Murmurs and Rub
Respiratory: Decreased Breath Sounds
Sternum: Stable
Incision: Clean, Dry and Intact
Extremities: No Edema (DP and PT are by Doppler b/l)
Abdomen: soft, nondistended, nontender, + decreased bowel sounds
Data Reviewed
-
Lab Results: Results Reviewed
Medications: Active Meds Reviewed
Chest X-Ray: Report Reviewed and Image Reviewed
ECG: Report Reviewed and Image Reviewed
[2024-09-18 03:59] LABS: Glucose - Point of Care 99 mg/dl (70-99)
--- NOTE | 2024-09-18 04:00 | PTCARENOTE ---
pt on and off levophed. continued pain management. call carlin within reach. will continue to monitor.
[2024-09-18 05:59] LABS: Glucose - Point of Care 114 mg/dl (70-99)
[2024-09-18] MEDS: TYLENOL PO (07:23)
--- NOTE | 2024-09-18 07:48 | W.PN.ANS.POP ---
Anesthesia Post Operative
- Anesthesia Post Op Note
Vital Signs Stable-See Nursing Note: Yes
Airway Patent: Yes
Adequate Pain Control: Yes
Change in Mental Status: No
Current Postoperative Nausea & Vomiting: No
Anesthesia Complications: No
General Anesthetic Recall: No
Unplanned Admission: No
Post Op Hydration Adequate: Yes
- -
Pt having some back pain, awake and alert. VSS, no N/V at time of post op visit.
[2024-09-18 07:54] LABS: Glucose - Point of Care 88 mg/dl (70-99)
[2024-09-18] MEDS: LOW STRENGTH ASPIRIN 81 MG PO (08:15)
[2024-09-18] MEDS: FLEXERIL 5 MG PO (08:15)
[2024-09-18] MEDS: CARAFATE 1 GRAM PO ×4 (08:15→23:15)
[2024-09-18] MEDS: PLAVIX 75 MG PO (08:15)
[2024-09-18] MEDS: PACERONE 200 MG PO ×3 (08:16→23:15)
[2024-09-18] MEDS: LIDOCAINE 4% PATCH 1 PATCH TOPICAL (08:16)
[2024-09-18] MEDS: SENOKOT-S 1 TABLET PO ×2 (08:16→21:28)
[2024-09-18] MEDS: BACTROBAN 2% OINTMENT 1 APPLIC NASAL ×2 (08:16→21:27)
[2024-09-18] MEDS: NEURONTIN 100 MG PO ×3 (08:16→23:15)
[2024-09-18] MEDS: MAGNESIUM OXIDE 500 MG PO ×2 (08:16→21:28)
[2024-09-18] MEDS: PROTONIX 40 MG PO (08:16)
--- NOTE | 2024-09-18 08:28 | W.PN.INTV ---
Today's Communication / Plan
Recommendations
Up OOB as tolerated
Pain control
Chest tube management as per CT surgery
Insulin drip being weaned off, keep BG goal at 110�140
Cardiac rehab consult
Monitor for recurrent fevers -consider panculture with empiric antibiotics if fever persists (CXR today shows mild retrocardiac opacification, suspect atelectasis vs developing PNA)
Columnist will continue to follow along while she remains in the CVICU. Once transferred to CVICU�telemetry status then we will sign off at that time. Thank you for allowing us to be involved in the care of this patient and please call back with
any questions or concerns.
Assessment
-
Assessment: 73-year-old female with a past medical history of hypertension, hyperlipidemia and erosive gastritis who presented from outside hospital ([facility]) for evaluation of CABG. Patient initially had an outpatient stress test for substernal chest
pain and inferolateral ST depressions were seen and she was referred to [facility]. She was diagnosed with an NSTEMI (elevated troponin at [facility]), was Plavix loaded and underwent left heart catheterization which showed 60% distal left main
disease, 95% mid RCA disease. Patient then transferred to [facility] for further evaluation for CABG. Plan was for CABG after Plavix washout, and she was continued on ASA, nitro drip and heparin drip in the interim period. Patient went
to the OR today and underwent CABG x 3 with a left atrial appendage clip with a 40 mm AtriClip. There were no complications and she was transferred to the CVICU postoperatively for further care with Columnist services consulted for additional
management/recommendations.
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
Impression:
#MV-CAD including left main disease + NSTEMI s/p CABG x 3 with left atrial appendage exclusion with 40 mm AtriClip (POD #1)
#Acute anemia due to above
#Acute thrombocytopenia due to above - plt count improving
#Hyperglycemia (HbA1C: 5.5 on 09/13/2024)
#Hyperkalemia (mild) - now resolved
#Lactic acidosis
#History of hypertension
#History of hyperlipidemia
#History of erosive gastritis
Plan:
Patient successfully extubated on 09/17/2024 and is currently breathing comfortably on room air and saturating 93%
Maintain SpO2 >90-94%
prn nebulized bronchodilators - not currently bronchospastic
Encourage incentive spirometry q1hr while awake
Pulmonary artery catheter parameters will be followed
Pressors/antihypertensive/inotropes/diuretics will be provided as needed
Maintain MAP>65
Replete electrolytes with K>4 but keep <5.2; replete Mg>2
Monitor chest tube output (bilateral pleural chest tubes + mediastinal chest tubes x 2)
Monitor hemoglobin
Monitor platelet count and coags
Transfuse blood products as needed to maintain Hb>7g/dL, plt>50k (given post-operative status)
CT surgery managing chest tubes
Monitor blood sugar to maintain euglycemia with goal BG 110-140
Insulin drip being stopped this AM; then would rec'd to start ISS to keep BG at goal as above
Aspiration precautions
DVT prophylaxis
Early nutrition
Early mobilization
Columnist will continue to follow along while she remains in the CVICU. Once transferred to CVICU�telemetry status then we will sign off at that time. Thank you for allowing us to be involved in the care of this patient and please call back with
any questions or concerns.
Total time spent today was 78 minutes for this encounter. Time includes reviewing laboratory test/imaging results, reviewing pertinent medical records, obtaining and reviewing medical history, performing an appropriate exam, ordering medications,
tests and procedures. Time also includes documentation of this encounter, coordinating patient care and communicating with other healthcare professionals. Total time does not include separately billed tests performed on this date of service.
Subjective Dataa
Subjective Data
Date of Service:
Date of Service: September 18, 2024
Chief Complaint: Columnist Follow Up
Subjective:
Patient was seen and evaluated today at bedside. Currently on room air breathing comfortably. Heart rate 79, BP 101/51. Chest tubes x [address] No acute events reported overnight. Currently denies chest pain, [place], fevers, chills, although she
did spike a fever last night to 100.4 �F.
Review of Systems
General: Other (Negative unless mentioned above)
Objective Data
Data Reviewed
Vital Signs / I&O / Oxygen:
Vital Signs
Temp Pulse Resp BP Pulse Ox
98.6 F 84 26 90/60 95
09/18/24 07:58 09/18/24 09:00 09/18/24 08:46 09/18/24 08:46 09/18/24 08:46
Intake and Output
09/17/24 09/18/24 09/19/24
06:59 06:59 06:59
Intake Total 115.5 / 115.5 1468.6 / 1479.8 31.8 / 31.8
Output Total 1705 / 1715
Balance 115.5 / 115.5 -236.4 / -235.2 21.8 / 21.8
SaO2 [CPAP] 98
SaO2 [SIMV] 97
SaO2 95
Nasal Cannula flow liters per 2
minute
Physical Exam
General: Respiratory Distress (negative), Comfortable, Chills (negative) and Sweats (negative)
HEENT: Normocephalic and Anicteric
Cardiovascular: S1-S2 and Peripheral Edema (negative)
Respiratory: Wheeze (negative), Crackles (negative), Rhonchi (negative), Stridor (negative) and Chest Tube (Bilateral pleural chest tubes + mediastinal chest tubes x 2)
GI: Soft, Non Distended, Non Tender and Normal Bowel Sounds
Neurology: Awake, Alert and Tremors (negative)
Skin: Warm, Dry, Cyanosis (negative) and Jaundice (negative)
Labs/Micro/Reports
Lab Data
09/18/24 01:56
09/18/24 01:56
Laboratory Results
09/17/24 09/17/24
12:28 17:36
PT 17.0 H
INR 1.33
APTT 29.8
pH 7.46 H 7.39
pCO2 34 42 H
pO2 112 H 157 H
HCO3 24.2 25.4
O2 Delivery Level Not Reportable
--- NOTE | 2024-09-18 08:30 | PTCARENOTE ---
Assumed care of patient at 0700. Pt is awake, alert, and oriented. Pt anxious. Pt with complaints of back pain. Remains SR with HR 80's. BP 101/57 MAP 71. Epicardial V wire in place set to 40/10/2. Pulse oximetry 96% on room air. Mediastinal chest
tubes x2 and left/right pleural chest tubes in place, no sign of air leak, drainage serosanguineous. Pt tolerating sips of water. Pt is due to void. Midsternal incision with post-op dressing in place. Right groin puncture approximated. Right leg
incision and brooke wrap in place. Right IJ cordis in place. Right IJ SLIC and left radial Daphnie d/c'd this morning. Pt remains on insulin gtt per protocol.
[2024-09-18 09:45] LABS: B.E. - POC 1.5 mmol/L; Blood Urea Nitrogen - POC 19 mg/dl (3-120); Chloride - POC 109 mmol/L (96-111); Creatinine - POC 0.99 mg/dl (0.3-1.0); Glucose - POC 144 mg/dl (70-99); HCO3 - POC 27 mmol/L (21-28); Hematocrit - POC 31 % PCV (37-47); Hemodilution- POC Yes; Hemoglobin Calculated - POC 10.6; Ionized Calcium - POC 1.68 mmol/L (1.15-1.33); Lactate - POC 1.55 mmol/L (0.36-0.75); PCO2 - POC 46 mmHg (35-48); PO2 - POC 138 mmHg (83-108); Potassium - POC 4.1 mmol/L (3.5-5.1); Sodium - POC 146 mmol/L (136-145); Specimen Type - POC Arterial; pH - POC 7.38 (7.35-7.45)
[2024-09-18] MEDS: VANCOCIN 200 IV (10:16)
[2024-09-18] MEDS: ProAmatine 5 MG PO ×3 (10:16→17:04)
[2024-09-18] MEDS: LR 500 IV (10:16)
[2024-09-18 10:21] LABS: Glucose - Point of Care 113 mg/dl (70-99)
--- NOTE | 2024-09-18 11:30 | PTCARENOTE ---
Pt assisted OOB and ambulated with cardiac rehab, tolerated well. Pt OOB in chair resting, BP 84/50 MAP 61, pt asymptomatic. CT SHAMIR, Shavonne made aware. Midodrine and 500mL LR bolus administered, repeat BP 95/54 MAP 66.
[2024-09-18] MEDS: NSS IV (11:44)
[2024-09-18 13:07] LABS: Glucose - Point of Care 89 mg/dl (70-99)
[2024-09-18] MEDS: TYLENOL 1000 MG PO ×2 (13:40→23:15)
--- NOTE | 2024-09-18 14:55 | CM ---
CM following for DC planning needs.
Patient POD#[address] Surg[address]
DC plan is for home w/ CT Transitional Care RN.
CM to follow.
--- NOTE | 2024-09-18 17:05 | PTCARENOTE ---
Pt remains SR with HR 70's. BP 94/55 MAP 67. Pulse oximetry 98% on room air. Chest tubes x4 remains in place. Insulin gtt d/c'd this afternoon per protocol. Tolerating PO diet. Pt voided x1 incontinent episode. Pt with complaints of pain, PRN
Roxicodone administered per order. Assisted pt OOB to chair, tolerated well.
--- NOTE | 2024-09-18 17:44 | W.PN.CD ---
Today's Communication / Plan
-
progressing well
restart BP meds and diurese as able
i ordered ezetimibe
Impression / Plan
-
CAD/NSTEMI:
-Echo [facility]: EF 60-65%
-elevated troponin at [facility] 09/11/24, troponin 0.275 here on 09/12/24
-POD1 s/p CABG (KRISH to LAD, GSV to OM1, GSV to RPDA; ELAA w/ 40mm AtriClip by Dr. Villanueva)
-standard post-op care per CTS: off drips, chest tubes still in place, ambulate as able, IS
-diuresis
-restart BB at low dose
-cont. DAPT with Plavix for 1 year
HTN:
-hypertensive pre-op
-restart coreg, arb as tolerated
hyperlipidemia:
-not previously on statin secondary to rash
-updated lipid with LDL 150
-start ezetimibe (ordered)
-outpatient to consider PCSK9i or retrial of statin
Carotid disease:
-cont ASA
Subjective:
- tele with sinus rhythm
- feeling well
Physical Exam
Vital Signs/Labs
Vital Signs
Temp Pulse Resp BP Pulse Ox
37.1 C 75 18 94/55 98
09/18/24 16:52 09/18/24 16:52 09/18/24 16:52 09/18/24 16:46 09/18/24 16:52
09/17/24 09/18/24 09/19/24
06:59 06:59 06:59
Actual Weight 66.6 kg 70.9 kg
09/18/24 01:56
09/18/24 01:56
PT 17.0 Sec (11.4-14.6) H 09/17/24 12:28
INR 1.33 09/17/24 12:28
APTT 29.8 Sec (23.4-35.0) 09/17/24 12:28
Magnesium 2.2 mg/dl (1.6-2.3) 09/18/24 01:56
Triglycerides 101 mg/dl (10-149) 09/14/24 03:38
LDL Cholesterol, Calc 150 mg/dl 09/14/24 03:38
VLDL Cholesterol, Calc 20 mg/dl (0-30) 09/14/24 03:38
HDL Cholesterol 49 mg/dl 09/14/24 03:38
Physical Exam
Constitutional: No acute distress
Cardiovascular: Rhythm & rate is regular
Respiratory: Respiratory effort normal
Neuro/Psych: AO x 3
Data Reviewed
-
Date of Service: September 18, 2024
Medical Decision Making: Reviewed Test Results
EKG: Tracing Personally Visualized and interpreted and Report Reviewed by me
Echo: Report Reviewed by me
X-Ray/CT/US/MRI/NUC/PET: Image Personally Visualized and interpreted and Report Reviewed by me
Labs: Labs Reviewed by me
--- NOTE | 2024-09-18 21:40 | PTCARENOTE ---
Report received from ZEHRA Amrstrong. Walking rounds done. Pt primarily Cameroonian speaking. EDMOND Golden helps to translate. Pt can communicate immediate needs. Language line prn. Pt awake, alert, oriented x 4. Speech clear. Moves all extremities x 4
equally. Pt helped from chair to BSC to void 275 mls of clear, yellow murine, 2 RN assist. Pt then helped back to bed. 2L/NC/O2 placed on pt. Sats 99%. BBS present. Decreased B bases and t/o. CDB and IS encouraged. IS peak 500 mls. Surgibra intact.
CTs x 4. All to -20 cm suction. See flowsheets. Pt in SR, 70's. Normotensive. V wire attached to temp pacer, VVI, rate 40/mA 10, sensitivity 2. For pulse and wound assessments, see flowsheets. Belly soft, nontender. Hypoactive bs x 4. Pt drank prune
jiuce this pm. Stool softener given. Reports flatus. No BM post op. Roxicodone 5 mg at ~2135 for moderate c/o sternal pain. Daughter t bedside. Ongoing plan of care.
--- NOTE | 2024-09-18 23:30 | PTCARENOTE ---
Pt given CHG bath. Assisted with brushing teeth. Helped to BSC to void 300 mls clear, yellow urine. Pt helped back to bed. EDMOND Golden at bedside to assess pt. Pt turned onto R side for comfort, pillow propped. VS recorded. 2L/NC overnight. Sats
99%. Ongoing plan of care.
[2024-09-19] VITALS (9 sets, daily range): BP systolic 11–134; BP diastolic 42–84; PULSE 71; O2SAT 98–99; BMI 27.8
--- NOTE | 2024-09-19 04:28 | PTCARENOTE ---
VS done. Labs drawn and sent. Remains in SR. Sats 100% on 2L/NC. No c/o pain.
[2024-09-19 04:49] LABS: Hematocrit 26.2 % (37.0-47.0); Hemoglobin 8.8 g/dL (12.0-16.0); Mean Corp Hgb Conc. 33.6 g/dL (33.0-37.0); Mean Corpuscular Hgb 31.1 pg (27.0-31.0); Mean Corpuscular Volume 92.6 fL (81.0-99.0); Mean Platelet Volume 11.4 fL (7.4-10.4); Platelet Count 113 10^3/uL (130-400); Red Blood Cell Count 2.83 10^6/uL (4.20-5.40); Red Cell Dist. Width 13.6 % (11.5-14.5); White Blood Cell Count 12.3 10^3/uL (4.8-10.8)
[2024-09-19 05:10] LABS: Blood Urea Nitrogen 24 mg/dl (7-17); Calcium 8.5 mg/dl (8.4-10.2); Carbon Dioxide 27 mmol/L (22-30); Chloride 102 mmol/L (98-107); Estimated Creatinine Clearance 56 ml/min; Glucose 106 mg/dl (70-99); Magnesium 2.2 mg/dl (1.6-2.3); Potassium 4.1 mmol/L (3.5-5.1); Sodium 134 mmol/L (135-145); eGFR > 60.00
[2024-09-19] MEDS: TYLENOL 1000 MG PO ×3 (06:34→21:32)
--- NOTE | 2024-09-19 06:40 | PTCARENOTE ---
Pt helped to BSC, voided clear, yellow urine. Pt then weighed on standing scale and helped to chair.
--- NOTE | 2024-09-19 07:20 | W.PN.CT ---
Today's Communication / Plan
-
-pod #2
-no issues overnight, slept
-hypotensive 09/18- got LR and started on Midodrine. Holding Lopressor
-CT outputs: 2 pleur 50/145, 2 meds 100/90 in 12/24 hrs
-need to encourage IS (upto 500 so far)
-current meds (ASA, Plavix, Midodrine, Amio, Protonix, Zetia, Carafate).
-encourage OOB, ambulate
-appreciate everyone's input
Assessment / Plan
-
-s/p CABG x 3 (KRISH to LAD, GSV to OM1, GSV to RPDA); ELAA w/ 40mm AtriClip by Dr. Villanueva on 09/17/24, pod #2
-Post-ARACELY: normal biventricular function w/ LVEF 60-65%, no RWMA, no significant VHD, GRAEME confirmed excluded
-NSTEMI/mv-CAD- last Plavix dose 09/11/24
-Cath 09/12/24:
LM: distal 60% stenosis
LAD: demonstrated myocardial bridging with mild systolic compression. Prox, mid, and distal with 10% stenosis
D1: 20% ostial and 30% mid stenosis
Circ:prox and mid 10% stenosis, mid to distal 20% stenosis
OM1 and OM2 with 10% stenosis
luminal irreg
RCA: mid 99% stenosis with QUANG II flow beyond the lesion and L-to-R collaterals
PDL/RPLs with luminal irreg
-EF 60-65%, no significant valvular dz by Echo 09/12/24 at [facility]
-b/l Carotid dz with >70% SUDHIR, 50-69% LICA, and >50% L ECA stenosis
-HTN
-HLD with statin intolerance
-Erosive gastritis
-Intolerance of multiple po meds
-Renal cyst
-Suspect b/l PAD (DP pulses by Doppler b/l)
-Acute postop blood loss anemia - stable, no transfusion
-Acute postop thrombocytopenia - improved
-Acute postop atelectasis
-Acute postop hypovolemia with subsequent hypervolemia
-Suspected pericarditis on postop ECG/ +rub
Discussed patient care with: Nursing and Care Team
Subjective
-
Date of Service: September 19, 2024
Objective Data
-
PT 17.0 Sec (11.4-14.6) H 09/17/24 12:28
INR 1.33 09/17/24 12:28
APTT 29.8 Sec (23.4-35.0) 09/17/24 12:28
Vital Signs
Vital Signs
Temp Pulse Resp BP Pulse Ox
98.1 F 65 15 123/50 99
09/18/24 23:10 09/19/24 00:00 09/18/24 23:10 09/18/24 23:15 09/19/24 01:04
CT Intake/Output/Weight
09/18/24 09/18/24 09/19/24
06:59 18:59 06:59
Intake Total 546.8 / 1479.8 625.4 / 675.4 50 / 675.4
Output Total 820 / 1715 185 / 875 690 / 875
Balance -273.2 / -235.2 440.4 / -199.6 -640 / -199.6
SaO2: 99
Physical Exam
-
General: Awake and AOx3
Cardiovascular: Regular rate & rhythm, No Murmurs and No Rub
Respiratory: Decreased Breath Sounds
Sternum: Stable
Incision: Clean, Dry and Intact
Extremities: Edema +1
Abdomen: soft, nontender, nondistended, + bowel sounds
Data Reviewed
-
Lab Results: Results Reviewed
Medications: Active Meds Reviewed
Chest X-Ray: Report Reviewed and Image Reviewed
ECG: Report Reviewed and Image Reviewed
[2024-09-19] MEDS: ZETIA 10 MG PO (08:20)
[2024-09-19] MEDS: MAGNESIUM OXIDE 500 MG PO ×2 (08:20→20:12)
[2024-09-19] MEDS: PLAVIX 75 MG PO (08:21)
[2024-09-19] MEDS: LOW STRENGTH ASPIRIN 81 MG PO (08:21)
[2024-09-19] MEDS: BACTROBAN 2% OINTMENT 1 APPLIC NASAL ×2 (08:21→20:12)
[2024-09-19] MEDS: CARAFATE 1 GRAM PO ×4 (08:21→21:40)
[2024-09-19] MEDS: SENOKOT-S 1 TABLET PO ×2 (08:21→20:13)
[2024-09-19] MEDS: PACERONE 200 MG PO ×3 (08:21→21:40)
[2024-09-19] MEDS: ProAmatine 5 MG PO ×3 (08:21→17:59)
[2024-09-19] MEDS: PROTONIX 40 MG PO (08:21)
[2024-09-19] MEDS: NEURONTIN 100 MG PO ×3 (08:21→21:40)
[2024-09-19] MEDS: LIDOCAINE 4% PATCH TOPICAL (09:18)
--- NOTE | 2024-09-19 10:38 | W.PN.CD ---
Today's Communication / Plan
-
Continues to do well
BP meds as able consider dose of diuretic
Impression / Plan
-
CAD/NSTEMI:
-Echo [facility]: EF 60-65%
-elevated troponin at [facility] 09/11/24, troponin 0.275 here on 09/12/24
-POD1 s/p CABG (KRISH to LAD, GSV to OM1, GSV to RPDA; ELAA w/ 40mm AtriClip by Dr. Villanueva)
-standard post-op care per CTS: off drips, chest tubes still in place, ambulate as able, IS
-diuresis
-restart BB at low dose
-cont. DAPT with Plavix for 1 year
HTN: normotensive now
-hypertensive pre-op
-metop has been started
ICMO HFrEF 45-50%
- GDMT as able likely unable to tolerate short term given marginal BPs
hyperlipidemia:
-not previously on statin secondary to rash
-updated lipid with LDL 150
-start ezetimibe (ordered)
-outpatient to consider PCSK9i or retrial of statin
Carotid disease:
-cont ASA
Subjective:
- tele with sinus rhythm
- feeling well tells me she is very thirsty
Physical Exam
Vital Signs/Labs
Vital Signs
Temp Pulse Resp BP Pulse Ox
98.3 F 73 18 105/61 100
09/19/24 08:00 09/19/24 09:00 09/19/24 08:00 09/19/24 06:26 09/19/24 04:10
09/18/24 09/19/24 09/20/24
06:59 06:59 06:59
Actual Weight 156 lb 4.924 oz 162 lb 0.636 oz
09/19/24 04:27
09/19/24 04:27
PT 17.0 Sec (11.4-14.6) H 09/17/24 12:28
INR 1.33 09/17/24 12:28
APTT 29.8 Sec (23.4-35.0) 09/17/24 12:28
Magnesium 2.2 mg/dl (1.6-2.3) 09/19/24 04:27
Triglycerides 101 mg/dl (10-149) 09/14/24 03:38
LDL Cholesterol, Calc 150 mg/dl 09/14/24 03:38
VLDL Cholesterol, Calc 20 mg/dl (0-30) 09/14/24 03:38
HDL Cholesterol 49 mg/dl 09/14/24 03:38
Physical Exam
Constitutional: No acute distress and Comfortable
EENT: Anicteric
Cardiovascular: Rhythm & rate is regular
Respiratory: Respiratory effort normal and Lungs clear to auscul.
GI: Soft
Neuro/Psych: AO x 3
Data Reviewed
-
Date of Service: September 19, 2024
EKG: Tracing Personally Visualized and interpreted (sr)
Echo: Report Reviewed by me
Labs: Labs Reviewed by me
--- NOTE | 2024-09-19 11:00 | PTCARENOTE ---
CTx4 removed pt in bed and resting AAOx4 all VSS, see worklist for detailed assessment
--- NOTE | 2024-09-19 14:54 | CM ---
CM following for DC planning needs.
Met w/ patient at bedside. Pt. doing well POD#2.
Reviewed Cardiac Rehab note; patient progressing well.
Plan is for home w/ CT Transitional Care RN + dtr. assist.
Will cont. to follow.
[2024-09-19] MEDS: NSS 500 IV (15:28)
--- NOTE | 2024-09-19 16:00 | PTCARENOTE ---
no change from previous assessment
--- NOTE | 2024-09-19 20:05 | PTCARENOTE ---
received pt from previous rn. daughter at bedside during assessment. pt AAOx4, VSS, NSR per tele monitor HR 80s, trace generalized anasarca, v wire insulated, pox 97% on RA, lungs diminished, +productive cough, hypoactive bs, voids appropriately,
all surgical sites intact, RIJ cordis infusing KVO, PIVx2 intact. plan of care discussed and questions encouraged
[2024-09-19] MEDS: ROXICODONE 5 MG PO (21:43)
--- NOTE | 2024-09-19 23:34 | PTCARENOTE ---
VSS, NSR per tele HR 70s, assessment remains unchanged
[2024-09-20] VITALS (11 sets, daily range): BP systolic 106–148; BP diastolic 56–78; PULSE 78; O2SAT 98–143; BMI 27.2
--- NOTE | 2024-09-20 01:26 | W.PN.CT ---
Addendum entered and electronically signed by Ravinder Villanueva MD 09/20/24 09:14:
I saw and examined the patient.
The PA's note was reviewed and I agree with the note.
Comment:
POD#3 s/p CABG x 3, ELAA
OOB/IS/ambulate
Restart BB
D/C planning for 1-2 days
Original Note:
Today's Communication / Plan
-
Plan:
-No major issues overnight. Hemodynamically and neurologically intact
-Has been hypotensive postop requiring Midodrine. BB currently on hold
-Will place Midodrine as PRN given improvement in BP
-Cont. current meds (ASA, Plavix, Midodrine, Amio, Protonix, Zetia, Carafate)
-D/C cordis
-Temporary wires were cut yesterday, 09/19
-Encourage use of IS
-OOB into chair/Ambulate
-Home in 1-2 days
Assessment / Plan
-
-s/p CABG x 3 (KRISH to LAD, GSV to OM1, GSV to RPDA); ELAA w/ 40mm AtriClip by Dr. Villanueva on 09/17/24, pod #3
-Post-ARACELY: normal biventricular function w/ LVEF 60-65%, no RWMA, no significant VHD, GRAEME confirmed excluded
-NSTEMI/mv-CAD- last Plavix dose 09/11/24
-Cath 09/12/24:
LM: distal 60% stenosis
LAD: demonstrated myocardial bridging with mild systolic compression. Prox, mid, and distal with 10% stenosis
D1: 20% ostial and 30% mid stenosis
Circ:prox and mid 10% stenosis, mid to distal 20% stenosis
OM1 and OM2 with 10% stenosis
luminal irreg
RCA: mid 99% stenosis with QUANG II flow beyond the lesion and L-to-R collaterals
PDL/RPLs with luminal irreg
-EF 60-65%, no significant valvular dz by Echo 09/12/24 at [facility]
-b/l Carotid dz with >70% SUDHIR, 50-69% LICA, and >50% L ECA stenosis
-HTN
-HLD with statin intolerance
-Erosive gastritis
-Intolerance of multiple po meds
-Renal cyst
-Suspect b/l PAD (DP pulses by Doppler b/l)
-Acute postop blood loss anemia - stable, no transfusion
-Acute postop thrombocytopenia - improved
-Acute postop atelectasis
-Acute postop hypovolemia with subsequent hypervolemia
-Suspected pericarditis on postop ECG/ +rub
Discussed patient care with: Cardiology, Nursing, Respiratory Therapy and Care Team
Subjective
-
Date of Service: September 20, 2024
Pt c/o mild incisional pain, otherwise feels well
Objective Data
-
PT 17.0 Sec (11.4-14.6) H 09/17/24 12:28
INR 1.33 09/17/24 12:28
APTT 29.8 Sec (23.4-35.0) 09/17/24 12:28
Vital Signs
Vital Signs
Temp Pulse Resp BP Pulse Ox
97.9 F 71 16 116/49 94
09/19/24 23:33 09/19/24 23:00 09/19/24 23:33 09/19/24 22:33 09/19/24 23:33
CT Intake/Output/Weight
09/19/24 09/19/24 09/20/24
06:59 18:59 06:59
Intake Total 620 / 1245.4
Output Total 1075 / 1260 1919
Balance -455 / -14.6 -1919
SaO2: 94 (RA)
Physical Exam
-
General: Awake, Oriented and AOx3
Cardiovascular: Regular rate & rhythm, No Murmurs, No Rub and No Gallop
Respiratory: Decreased Breath Sounds (at bases, otherwise clear)
Sternum: Stable
Incision: Clean, Dry, Intact and Dressing Intact
Extremities: Other (+trace edema)
Data Reviewed
-
Lab Results: Results Reviewed
Medications: Active Meds Reviewed
Chest X-Ray: Report Reviewed and Image Reviewed
ECG: Report Reviewed and Image Reviewed
--- NOTE | 2024-09-20 04:25 | PTCARENOTE ---
routine labs obtained, VSS, NSR per tele monitor HR 70s. assessment remains unchanged
[2024-09-20 04:28] LABS: Ionized Calcium 1.19 mMOL/L (1.15-1.33)
[2024-09-20 04:32] LABS: Hematocrit 29.4 % (37.0-47.0); Mean Platelet Volume 11.3 fL (7.4-10.4); Platelet Count 106 10^3/uL (130-400); Red Blood Cell Count 3.23 10^6/uL (4.20-5.40); Red Cell Dist. Width 13.4 % (11.5-14.5); White Blood Cell Count 7.2 10^3/uL (4.8-10.8)
[2024-09-20 04:57] LABS: Blood Urea Nitrogen 17 mg/dl (7-17); Calcium 8.6 mg/dl (8.4-10.2); Carbon Dioxide 31 mmol/L (22-30); Chloride 107 mmol/L (98-107); Estimated Creatinine Clearance 63 ml/min; Glucose 98 mg/dl (70-99); Magnesium 2.3 mg/dl (1.6-2.3); Potassium 4.3 mmol/L (3.5-5.1); Sodium 140 mmol/L (135-145); eGFR > 60.00
[2024-09-20] MEDS: CALCIUM GLUCONATE 130 MG IV (06:05)
[2024-09-20] MEDS: CARAFATE 1 GRAM PO ×4 (07:15→21:22)
[2024-09-20] MEDS: TYLENOL 1000 MG PO (07:29)
--- NOTE | 2024-09-20 08:00 | PTCARENOTE ---
pt received from previous RN, oriented. SR on the monitor, HR 70-80s. V-wire insulated. SBP 100-140s. pt on RA, 97% POX. lungs clear/diminished in bases. IS encouraged. pt abdomen s/n, denies n/v. 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 Miralax ordered.
voids. ambulates independently. sternal aquacel intact. chest tube sutures YOLA. R groin and R knee YOLA. RIJ cordis maintained. PIV x2. see worklist for VS, I&O, and assessment.
[2024-09-20] MEDS: LOW STRENGTH ASPIRIN 81 MG PO (09:03)
[2024-09-20] MEDS: MIRALAX 17 GRAMS PO (09:03)
[2024-09-20] MEDS: PACERONE 200 MG PO ×3 (09:03→21:53)
[2024-09-20] MEDS: MAGNESIUM OXIDE 500 MG PO (09:04)
[2024-09-20] MEDS: PLAVIX 75 MG PO (09:04)
[2024-09-20] MEDS: LIDOCAINE 4% PATCH 1 PATCH TOPICAL (09:04)
[2024-09-20] MEDS: ZETIA 10 MG PO (09:04)
[2024-09-20] MEDS: LOPRESSOR 12.5 MG PO (09:04)
[2024-09-20] MEDS: PROTONIX 40 MG PO (09:04)
[2024-09-20] MEDS: NEURONTIN 100 MG PO ×3 (09:04→21:53)
[2024-09-20] MEDS: SENOKOT-S 1 TABLET PO ×2 (09:04→20:13)
[2024-09-20] MEDS: BACTROBAN 2% OINTMENT 1 APPLIC NASAL ×2 (09:05→20:13)
[2024-09-20] MEDS: NSS IV (10:29)
--- NOTE | 2024-09-20 12:42 | PTCARENOTE ---
pt VSS, no changes in assessment. pt ambulating in room independently, voids. no c/o pain or SOB.
[2024-09-20] MEDS: TYLENOL 500 MG PO (13:07)
--- NOTE | 2024-09-20 14:20 | PTCARENOTE ---
pt ambulated in hallway w/ stand by assist. pt placed back to bed, V wire cut by EMIGDIO Mravin. per order, DALILA martini dc'd, dressing c/d/i.
--- NOTE | 2024-09-20 16:00 | PTCARENOTE ---
pt VSS, no changes in assessment. no c/o pain. daughter at bedside and updated. ambulates independently.
--- NOTE | 2024-09-20 20:05 | PTCARENOTE ---
received pt from previous rn. pt AAOx4, VSS, NSR per tele monitor HR 80s, trace generalized anasarca pox 98% on RA, lungs diminished, +productive cough, +bs, voids appropriately, all surgical sites intact, PIVx2 intact. plan of care discussed and
questions encouraged
[2024-09-20] MEDS: TOPROL XL 12.5 MG PO (20:13)
[2024-09-20] MEDS: TYLENOL PO (21:53)
[2024-09-21 00:07] VITALS: BP 126/62
--- NOTE | 2024-09-21 00:09 | PTCARENOTE ---
pt resting comfortably in bed, VSS, NSR per tele monitor, assessment remains unchanged
[2024-09-21 03:58] VITALS: BP 129/64
[2024-09-21 04:30] LABS: Hematocrit 27.6 % (37.0-47.0); Hemoglobin 9.2 g/dL (12.0-16.0); Mean Corp Hgb Conc. 33.3 g/dL (33.0-37.0); Mean Corpuscular Hgb 30.2 pg (27.0-31.0); Mean Corpuscular Volume 90.5 fL (81.0-99.0); Mean Platelet Volume 10.9 fL (7.4-10.4); Platelet Count 178 10^3/uL (130-400); Red Blood Cell Count 3.05 10^6/uL (4.20-5.40); Red Cell Dist. Width 13.3 % (11.5-14.5); White Blood Cell Count 7.4 10^3/uL (4.8-10.8)
--- NOTE | 2024-09-21 04:40 | W.PN.CT ---
Addendum entered and electronically signed by Ravinder Villanueva MD 09/21/24 09:25:
I saw and examined the patient.
The PA's note was reviewed and I agree with the note.
Comment:
POD#4 s/p CABG x3
Doing well.
Home today.
Original Note:
Today's Communication / Plan
-
Plan:
-No major issues overnight. Hemodynamically and neurologically intact
-Postop hypotension has improved. No longer requiring Midodrine. Tolerating resumption of BB
-Cont. current meds (ASA, Plavix, Midodrine, Amio, Protonix, Zetia, Carafate)
-F/U 2-view cxr
-Encourage use of IS
-OOB into chair/Ambulate
-Home today
Assessment / Plan
-
-s/p CABG x 3 (KRISH to LAD, GSV to OM1, GSV to RPDA); ELAA w/ 40mm AtriClip by Dr. Villanueva on 09/17/24, pod #4
-Post-ARACELY: normal biventricular function w/ LVEF 60-65%, no RWMA, no significant VHD, GRAEME confirmed excluded
-NSTEMI/mv-CAD- last Plavix dose 09/11/24
-Cath 09/12/24:
LM: distal 60% stenosis
LAD: demonstrated myocardial bridging with mild systolic compression. Prox, mid, and distal with 10% stenosis
D1: 20% ostial and 30% mid stenosis
Circ:prox and mid 10% stenosis, mid to distal 20% stenosis
OM1 and OM2 with 10% stenosis
luminal irreg
RCA: mid 99% stenosis with QUANG II flow beyond the lesion and L-to-R collaterals
PDL/RPLs with luminal irreg
-EF 60-65%, no significant valvular dz by Echo 09/12/24 at [facility]
-b/l Carotid dz with >70% SUDHIR, 50-69% LICA, and >50% L ECA stenosis
-HTN
-HLD with statin intolerance
-Erosive gastritis
-Intolerance of multiple po meds
-Renal cyst
-Suspect b/l PAD (DP pulses by Doppler b/l)
-Acute postop blood loss anemia - stable, no transfusion
-Acute postop thrombocytopenia - improved
-Acute postop atelectasis
-Acute postop hypovolemia with subsequent hypervolemia
-Suspected pericarditis on postop ECG/ +rub
Discussed patient care with: Cardiology, Nursing, Respiratory Therapy, Pharmacy and Care Team
Subjective
-
Date of Service: September 21, 2024
Pt c/o mild incisional pain, otherwise feels well. Ambulating halls without difficulty
Objective Data
-
Lab Results
09/21/24 04:14
PT 17.0 Sec (11.4-14.6) H 09/17/24 12:28
INR 1.33 09/17/24 12:28
APTT 29.8 Sec (23.4-35.0) 09/17/24 12:28
Vital Signs
Vital Signs
Temp Pulse Resp BP Pulse Ox
97.9 F 78 18 129/64 98
09/21/24 04:01 09/21/24 03:58 09/21/24 04:01 09/21/24 03:58 09/21/24 04:01
CT Intake/Output/Weight
09/20/24 09/20/24 09/21/24
06:59 18:59 06:59
Intake Total 1000 / 1100 100 / 1100
Output Total 1850 / 4500 2650 / 4500
Balance -850 / -3400 -2550 / -3400
SaO2: 98 (RA)
Physical Exam
-
General: Awake, Oriented and AOx3
Cardiovascular: Regular rate & rhythm, No Murmurs, No Rub and No Gallop
Respiratory: Decreased Breath Sounds (at bases, otherwise clear)
Sternum: Stable
Incision: Clean, Dry, Intact and Dressing Intact
Extremities: Other (+trace edema)
Data Reviewed
-
Lab Results: Results Reviewed
Medications: Active Meds Reviewed
Chest X-Ray: Report Reviewed and Image Reviewed
ECG: Report Reviewed and Image Reviewed
--- NOTE | 2024-09-21 04:42 | PTCARENOTE ---
routine labs obtained, VSS, NSR per tele monitor HR 78, assessment remains unchanged
[2024-09-21 04:48] LABS: Blood Urea Nitrogen 15 mg/dl (7-17); Calcium 8.9 mg/dl (8.4-10.2); Carbon Dioxide 26 mmol/L (22-30); Chloride 108 mmol/L (98-107); Estimated Creatinine Clearance 72 ml/min; Glucose 105 mg/dl (70-99); Magnesium 2.2 mg/dl (1.6-2.3); Potassium 4.3 mmol/L (3.5-5.1); Sodium 141 mmol/L (135-145); eGFR > 60.00
[2024-09-21 05:09] VITALS: BMI 27.0
[2024-09-21] MEDS: TYLENOL PO (05:09)
[2024-09-21] MEDS: CARAFATE 1 GRAM PO (07:55)
[2024-09-21 07:58] VITALS: BP 154/73
--- NOTE | 2024-09-21 08:00 | PTCARENOTE ---
pt received from previous RN, oriented. SR on the monitor, HR 70-80s. SBP 140ss. pt on RA, 97% POX. lungs clear/diminished in bases. IS encouraged. pt abdomen s/n, denies n/v. +BM. voids. ambulates independently. sternal aquacel intact. chest tube
sutures ATHLETIC AGENT. R groin and R knee ATHLETIC AGENT. PIV x2. see worklist for VS, I&O, and assessment.
[2024-09-21 08:02] VITALS: BP 148/77
[2024-09-21] MEDS: LIDOCAINE 4% PATCH TOPICAL (08:25)
[2024-09-21] MEDS: NSS IV (08:34)
[2024-09-21] MEDS: SENOKOT-S 1 TABLET PO (08:34)
[2024-09-21] MEDS: MIRALAX 17 GRAMS PO (08:34)
[2024-09-21] MEDS: NEURONTIN 100 MG PO ×2 (08:34→14:50)
[2024-09-21] MEDS: LOW STRENGTH ASPIRIN 81 MG PO (08:34)
[2024-09-21] MEDS: PROTONIX 40 MG PO (08:34)
[2024-09-21] MEDS: TOPROL XL 12.5 MG PO (08:34)
[2024-09-21] MEDS: PACERONE 200 MG PO (08:34)
[2024-09-21] MEDS: ZETIA 10 MG PO (08:34)
[2024-09-21] MEDS: PLAVIX 75 MG PO (08:34)
[2024-09-21] MEDS: BACTROBAN 2% OINTMENT 1 APPLIC NASAL (08:35)
[2024-09-21 08:49] VITALS: BP 160/74
--- NOTE | 2024-09-21 08:52 | W.DCSUMMARY ---
Discharge Summary
Discharge Data
Date of Admission: 09/12/24
Date of Discharge: 09/21/24
-
Pending Results: No
Hospital Course
Primary care physician: Karina Garcia
Outpatient cleaning associate: Phuc Banuelos
Inpatient consultants: [facility] cardiology, pulmonary coffee roaster helper
Procedures:
1. CABG, left atrial appendage exclusion
Primary Diagnosis:
1. NSTEMI/Multivessel CAD including LM disease
Secondary Diagnoses:
1. Hypertension
2. Hyperlipidemia
3. Erosive gastritis
4. Acute postop blood loss anemia - expected
5. Acute postop thrombocytopenia - expected
6. Acute postop hypovolemia with subsequent hypervolemia
7. Suspected pericarditis on postop ECG/ +rub
8. Carotid artery disease (>70% R ICA, 50-69% L ICA)
HPI: Patient underwent outpatient stress test for complaint of chest pain and shortness of breath. She was noted to have ST depressions inferior laterally and referred to [facility] emergency room. She was treated for a NSTEMI with IV
heparin and Plavix loaded with 300 mg on 09/11/24. No further Plavix was given. A left heart cath reported left main and triple-vessel disease. Patient transferred to [facility] on 09/14/24 for surgical evaluation.
Hospital course: Plan was for CABG after Plavix washout, and she was continued on ASA, nitro drip and heparin drip in the interim period. Patient underwent CABG x 3 (KRISH to LAD, GSV to OM1, GSV to RPDA) and left atrial appendage exclusion (#40mm
AtriClip) on 09/17/[address] Ravinder Villanueva. Postprocedure ARACELY reported an EF of 65% with trace MR and mild TR. Patient received Ancef standard dosing perioperatively without reaction. Patient received no intraoperative blood products and returned
to CVICU on Levophed, Precedex, and insulin. Patient was extubated the night of surgery. Aspirin and Plavix were initiated. Midodrine was added for transient postoperative hypotension on postoperative day #1. Tumor cells of the right and left
pleural chest tube were removed on postoperative day #2. Epicardial ventricular pacing wires were on postoperative day #3. Patient ambulated in halls with cardiac rehab and deemed stable for discharge destination to home. Blood pressure improved
and midodrine discontinued. Losartan was resumed for added blood pressure control. Patient will continue on Zetia due to statin allergy. Prophylactic amiodarone was discontinued on discharge as patient experienced no episodes of atrial
arrhythmias.
Home medication changes:
Stop diltiazem
New: ASA/Plavix, Toprol 25mg daily
Change omeprazole to Protonix while on Plavix
Discharge Plan
-
Patient Disposition: Home (Routine Discharge)
Discharge Diagnosis/Procedures: 09/17 CABG/left atrial appendage clip
Condition: Good
Diet: Low Cholesterol and Low Sodium
Activity: No strenuous activity
Driving Restrictions: No driving for 24 hours
Bathing Restrictions: OK to Shower
Other Services: Cardiac Rehab
Specialty Instructions: Weigh Daily- Call MD for wt gain/loss 3 lbs overnight/5 lbs in 1 week
Referrals:
CT Transitional Care Nurse [Outside] (The Cardiothoracic Transitional Care Nurse will call you to set up a visit in 1-2 days.)
Phuc Banuelos DO [Active] - 11/11/24 1:40 pm
Karina Garcia MD [Family Provider] -
Ravinder Villanueva MD [Active] - 10/21/24 3:00 pm
Prescriptions:
New
ezetimibe 10 mg Tablet
10 mg PO DAILY Qty: 30 1RF
acetaminophen 325 mg Tablet
650 mg PO Q4HPRN PRN (Reason: mild pain,headache,temp >101F ) Qty: 0 0RF
aspirin 81 mg Tablet,Chewable
81 mg PO DAILY Qty: 0 0RF
clopidogrel 75 mg Tablet
75 mg PO DAILY Qty: 30 2RF
gabapentin 100 mg Capsule
100 mg PO TID Qty: 30 0RF
oxycodone 5 mg Tablet
5 mg PO Q4HPRN PRN (Reason: severe pain) Qty: 10 0RF
pantoprazole 40 mg Tablet,Delayed Release (Dr/Ec)
40 mg PO DAILY Qty: 30 2RF
metoprolol succinate [Toprol XL] 25 mg tablet extended release 24 hr
25 mg PO DAILY Qty: 30 2RF
Continued
losartan 50 mg Tablet
50 mg PO DAILY
Discontinued
diltiazem HCl [Cardizem CD] 180 mg Capsule,Extended Release 24hr
180 mg PO DAILY
omeprazole 20 mg Capsule,Delayed Release(Dr/Ec)
20 mg PO DAILY
alum-mag hydroxide-simeth [Maalox] 200-200-20 mg/5 mL Suspension
15 ml PO QID PRN (Reason: acid reflux)
Discharge Orders:
Discharge Patient (As Directed); Ordered 09/21/24
Ordered By: Shavonne Byrd
Care Plan Goals
Care Plan Goals:
Problem: Readiness for enhanced knowledge related to diagnosis and treatment plan
Goal: Understand your diagnosis and treatment plan needs, including medications if applicable.
Instructions: Know your diagnosis, underlying causes and treatment plan options, including medications if applicable. Consult with your health care team to learn about your diagnosis and treatment plan, including medications if applicable.
Discharge Date and Time
Print Language: [id number]
[2024-09-21] MEDS: COZAAR 25 MG PO (09:08)
[2024-09-21 11:22] VITALS: BP 127/63
--- NOTE | 2024-09-21 11:24 | PTCARENOTE ---
pt VSS, no changes in assessment. pt ambulated in hallway independently, stairs completed w/ 2 RNs. daughter Lynda called and updated.
--- NOTE | 2024-09-21 14:50 | PTCARENOTE ---
pt discharged home, discharge instructions reviewed w/ patient and daughter, questions answered. home meds reviewed. IV and tele dc'd. surgical dressings removed. pt showered. dressed self. pt left via wheelchair w/ all belongings.
== END 2024-09-21 14:50 | disposition home or self-care (01) | DRG 236 ==
LOC: CVICU 20:05
PROVIDERS: Anesthesiology; Clinical Nurse Specialist Acute Care; Nurse Practitioner; Physician Assistant Medical; ADMITTING PHYSICIAN Thoracic Surgery (Cardiothoracic Vascular Surgery); CONSULT PHYSICIAN Internal Medicine Critical Care Medicine; FAMILY PHYSICIAN Internal Medicine; OTHER PHYSICIAN Internal Medicine
PROC: 02L70CK Occlusion of Left Atrial Appendage with Extraluminal Device, Open Approach (ICD-10-PCS; 2024-09-17)
PROC: 5A1221Z Performance of Cardiac Output, Continuous (ICD-10-PCS; 2024-09-17)
PROC: 02100ZC Bypass Coronary Artery, One Artery from Thoracic Artery, Open Approach (ICD-10-PCS; 2024-09-17)
PROC: 06BP4ZZ Excision of Right Saphenous Vein, Percutaneous Endoscopic Approach (ICD-10-PCS; 2024-09-17)
PROC: 021109W Bypass Coronary Artery, Two Arteries from Aorta with Autologous Venous Tissue, Open Approach (ICD-10-PCS; 2024-09-17)
PROC: B24BZZ4 Ultrasonography of Heart with Aorta, Transesophageal (ICD-10-PCS; 2024-09-17)
DX: I21.4 Non-ST elevation (NSTEMI) myocardial infarction (principal); E87.20 Acidosis, unspecified; Q24.5 Malformation of coronary vessels; D62 Acute posthemorrhagic anemia; I30.8 Other forms of acute pericarditis; J98.11 Atelectasis; I50.22 Chronic systolic (congestive) heart failure; I25.10 Atherosclerotic heart disease of native coronary artery without angina pectoris; E78.00 Pure hypercholesterolemia, unspecified; K21.9 Gastro-esophageal reflux disease without esophagitis; I65.23 Occlusion and stenosis of bilateral carotid arteries; N28.1 Cyst of kidney, acquired; D69.59 Other secondary thrombocytopenia; R73.9 Hyperglycemia, unspecified; E87.5 Hyperkalemia; R00.1 Bradycardia, unspecified; E86.1 Hypovolemia; E87.70 Fluid overload, unspecified; I95.81 Postprocedural hypotension; I73.9 Peripheral vascular disease, unspecified; I25.5 Ischemic cardiomyopathy; I11.0 Hypertensive heart disease with heart failure; Z79.899 Other long term (current) drug therapy
CPT/HCPCS: 93308; 70496; 70498; 71045; 71046; 71250; 80048; 80053; 80061; 81003; 82330; 82565; 82805; 82810; 82947; 82962; 83036; 83735; 84132; 84302; 84484; 84520; 85014; 85018; 85027; 85049; 85610; 85730; 86850; 86900; 86901; 86920; 93005; 93312; 93320; 93321; 93325; 94002; Q9967